=== PATIENT | female | born 1935 | race Caucasian/White ===

== ENCOUNTER 2017-09-02 13:44 | Emergency (ER) | payer MEDICARE, BC ==
--- NOTE | 2017-09-02 14:56 | EDM.PDOC ---
ED HPI GENERAL MEDICAL PROBLEM - General Chief Complaint: Head Injury Stated Complaint: Fall Time Seen by Provider: 09/02/17 14:46 Source of Information: Reports: Patient, EMS, EMS Notes Reviewed History Limitations: Reports: No Limitations - History of Present Illness INITIAL COMMENTS - FREE TEXT/NARRATIVE: Patient is an 82-year-old female who presents to the emergency department via EMS this afternoon for complaint of fall at nursing facility. Patient states that she tripped on her walker landing on both knees and falling forward and hitting her head. Fall was witnessed. Patient denies headache, dizziness, neck pain, vision changes, coagulation therapy, chest pain, shortness of breath , syncope or near syncope, back pain, or any other injury. 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 Constitutional: Reports: No Symptoms HEENT: Reports: No Symptoms Respiratory: Reports: No Symptoms Cardiovascular: Reports: No Symptoms Endocrine: Reports: No Symptoms GI/Abdominal: Reports: No Symptoms : Reports: No Symptoms Musculoskeletal: Reports: Leg Pain (Bilateral knees) Skin: Reports: Bruising (Left for head) Neurological: Reports: No Symptoms. Denies: Confusion, Dizziness, Headache, Trouble Speaking, Change in Speech Psychiatric: Reports: No Symptoms Hematologic/Lymphatic: Reports: No Symptoms Immunologic: Reports: No Symptoms ED EXAM, HEAD INJURY - Physical Exam Exam: See Below Exam Limited By: No Limitations General Appearance: Alert, WD/WN, No Apparent Distress Head: Scalp Swelling, Scalp Ecchymosis, Scalp Hematoma, Scalp Tenderness. No: Scalp Lacerations, Scalp Abrasions, Active Bleeding, Bee's Sign, Sinus Tenderness, Facial Tenderness, Raccoon Eyes Nexus Criteria: No: Posterior, Midline Cervical Tenderness, Evidence of Intoxication, Altered Level of Consciousness, Focal Neurological Deficit, Painful Distraction Injuries Eyes: Bilateral Eye: Normal Inspection Ears: Normal External Exam, Normal Canal, Normal TMs Nose: Normal Inspection, Normal Mucousa, No Blood Throat/Mouth: Normal Inspection, Normal Oropharynx, No Airway Compromise Neck: Non-Tender, Full Range of Motion, Normal Alignment, Normal Inspection Respiratory: No Respiratory Distress, Lungs Clear, Normal Breath Sounds, No Accessory Muscle Use, Chest Non-Tender Cardiovascular: Regular Rate, Rhythm, No Murmur GI/Abdominal Exam: Normal Bowel Sounds, Soft, Non-Tender Back Exam: Normal Inspection, Full Range of Motion. 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, No Motor/Sensory Deficits, Alert, Normal Mood/Affect, Oriented x 3 Skin: Normal Color, Warm/Dry, Ecchymosis (Left lower forehead) - Sherrell Coma Score Spring Total: 15 Course - Vital Signs Last Recorded V/S: Last Vital Signs Temp 98.3 F 09/02/17 13:56 Pulse 72 09/02/17 13:56 Resp 16 09/02/17 13:56 BP 145/70 H 09/02/17 13:56 Pulse Ox 92 L 09/02/17 13:56 - Orders/Labs/Meds Orders: Active Orders 24 hr Category Date Time Status Cervical Spine wo Cont [CT] Stat Exams 09/02/17 13:55 Ordered Head wo Cont [CT] Stat Exams 09/02/17 13:55 Ordered Knee 3V Bi [CR] Stat Exams 09/02/17 13:55 Ordered - Radiology Interpretation Free Text/Narrative:: CT head and cervical spine, both negative for acute process Bilateral knee 3 view x-rays were negative for acute process CT Results Date: 09/02/17 - Re-Assessments/Exams Free Text/Narrative Re-Assessment/Exam: 09/02/17 15:11 Patient afebrile, nontoxic appearing, vital signs stable, denies any pain. Patient acting appropriately and has family with her. Patient will follow-up with PCP. Departure - Departure Time of Disposition: 15:12 Disposition: Home, Self-Care 01 Condition: Good Clinical Impression: Hematoma Contusion of scalp Qualifiers: Encounter type: initial encounter Qualified Code(s): S00.03XA - Contusion of scalp, initial encounter Knee contusion Qualifiers: Encounter type: initial encounter Laterality: unspecified laterality Qualified Code(s): S80.00XA - Contusion of unspecified knee, initial encounter - Discharge Information Instructions: Facial or Scalp Contusion, [id number], Hematoma, [id number], Head Injury, Adult, [id number], Contusion, [id number] Referrals: Rhonda Centeno PA-C [Primary Care Provider] - Additional Instructions: Follow-up with PCP in one to 2 days. Return to emergency department sooner if symptoms continue or worsen. - My Orders Last 24 Hours: My Active Orders 09/02/17 13:55 Cervical Spine wo Cont [CT] Stat Head wo Cont [CT] Stat Knee 3V Bi [CR] Stat - Assessment/Plan Last 24 Hours: My Active Orders 09/02/17 13:55 Cervical Spine wo Cont [CT] Stat Head wo Cont [CT] Stat Knee 3V Bi [CR] Stat Assessment:: Fall, elbow contusion, knee contusion Plan: Follow-up with PCP
== END 2017-09-02 15:20 | disposition home or self-care (01) ==
LOC: KA.ED 13:44
DX: S00.03XA Contusion of scalp, initial encounter (principal); S80.01XA Contusion of right knee, initial encounter; S80.02XA Contusion of left knee, initial encounter; Z79.899 Other long term (current) drug therapy; W01.10XA Fall on same level from slipping, tripping and stumbling with subsequent striking against unspecified object, initial encounter
CPT/HCPCS: 70450; 72125; 73562-50; 99284; 99285

== ENCOUNTER 2020-04-25 15:10 | Inpatient (IN) | payer MEDICARE, BC ==
--- NOTE | 2020-04-25 15:32 | EDM.PDOC ---
ED HPI GENERAL MEDICAL PROBLEM - General Chief Complaint: Respiratory Problem Stated Complaint: SOB Time Seen by Provider: 04/25/20 15:10 Source of Information: Reports: Patient, EMS History Limitations: Reports: No Limitations - History of Present Illness INITIAL COMMENTS - FREE TEXT/NARRATIVE: Nicole, 85-year-old female, while at home today developed sudden onset of shortness of breath with mild chest pressure discomfort. She had no other symptoms prior to that. She states no discomfort at this time as long as she is seated not straining, nor moving. She denies fever chills or other contributing factors, but when updating her daughter Liyah on her status at 1630 hrs. was informed that she had been gradually getting weaker over the past week. Last week she bumped her knee causing some irritation and discomfort but denies any significant sequela from that. Onset: Today, Sudden Onset Date: 04/25/20 Onset Time: 14:30 Duration: Minutes: Location: Reports: Chest - Related Data Allergies Allergy/AdvReac Type Severity Reaction Status Date / Time No Known Allergies Allergy Verified 04/25/20 15:29 Home Meds: Home Meds Losartan/Hydrochlorothiazide [Losartan-HCTZ 100-25 MG] 1 tab PO DAILY 09/02/17 [History] Metoprolol Succinate 50 mg PO DAILY 09/02/17 [History] Simvastatin 40 mg PO DAILY 09/02/17 [History] Calcium Carbonate/Vitamin D3 [Caltrate 600 Plus D3 Tablet] 1 tab PO DAILY 04/25/20 [History] Niacin 500 mg PO DAILY 04/25/20 [History] Vit C/E/Zn/Coppr/Lutein/Zeaxan [Preservision Areds 2 Softgel] 1 each PO DAILY 04/25/20 [History] hydroCHLOROthiazide [Hydrochlorothiazide] 25 mg PO DAILY 04/25/20 [History] Past Medical History HEENT History: Reports: Impaired Vision, Other (See Below) (Left eye deviation) Cardiovascular History: Reports: High Cholesterol, Hypertension Neurological History: Reports: Other (See Below) Other Neuro History: RESTLESS LEG SYNDROME Endocrine/Metabolic History: Reports: Diabetes, Type II Oncologic (Cancer) History: Reports: Breast - Past Imaging History Past Imaging History: Reports: CAT Scan, Xray Social & Family History - Family History Family Medical History: Noncontributory - Tobacco Use Tobacco Use Status *Q: Never Tobacco User - Caffeine Use Caffeine Use: Reports: Coffee - Alcohol Use Alcohol Use History: No - Recreational Drug Use Recreational Drug Use: No Drug Use in Last 12 Months: No - Living Situation & Occupation Living situation: Reports: , Alone ED ROS GENERAL - Review of Systems Review Of Systems: See Below Constitutional: Reports: No Symptoms HEENT: Reports: No Symptoms Respiratory: Reports: Shortness of Breath Cardiovascular: Reports: Chest Pain Endocrine: Reports: No Symptoms GI/Abdominal: Reports: No Symptoms : Reports: No Symptoms Musculoskeletal: Reports: Joint Pain (Knee pain knee pain), Muscle Pain (Knee pain) Skin: Reports: Bruising (Knee) Neurological: Reports: No Symptoms Psychiatric: Reports: No Symptoms Hematologic/Lymphatic: Reports: No Symptoms Immunologic: Reports: No Symptoms ED EXAM, GENERAL - Physical Exam Exam: See Below Free Text/Narrative:: Alert, oriented, and in no acute distress. 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 There is a small scar to the eyebrow. [place] moist mucous membranes Neck is soft supple with no carotid bruit no JVD appreciated. Thorax is clear, mildly diminished, with no wheezes nor crackles. Cardiac is S1-S2 with occasional ectopic beat. There is a grade 1 systolic murmur nonradiating. Abdomen is soft bowel sounds are present no flank pain is noted. Radial pulses correlate with apical heart rate. There is a horizontal scar over the right patella she states is an injury from childhood. There is faint ecchymosis to the left knee region none of which appears significant, nor painful to touch/palpation. Negative Homans' sign bilateral with no change in perception sensation to plantar flexion dorsiflexion. When questioned about her fall, she adamantly denies it being a fall, she just slipped when seated against a hamper causing her to bump her knee. This minor injury did not cause any disability or bedridden. That would place her at risk for clot issues. #1 Interpretation EKG Date: 04/25/20 Time: 15:46 Rhythm: NSR Rate (Beats/Min): 70 (PAC's) [place]: Normal P-Wave: Present QRS: Normal ST-T: Normal QT: Normal Comparison: NA - No Prior EKG Course - Vital Signs Last Recorded V/S: Last Vital Signs Temp 36.1 C 04/25/20 15:30 Pulse 68 04/25/20 18:10 Resp 21 H 04/25/20 18:10 BP 186/110 H 04/25/20 18:10 Pulse Ox 98 04/25/20 18:10 - Orders/Labs/Meds Orders: Active Orders 24 hr Category Date Time Status EKG Documentation Completion [RC] ASDIRECTED Care 04/25/20 15:30 Active Heparin Sodium/D5W 250 ml Med 04/25/20 17:15 Ordered IV TITRATE Sodium Chloride 0.9% [Normal Saline] 100 ml Med 04/25/20 16:45 Active IV ASDIRECTED Sodium Chloride 0.9% [Normal Saline] 250 ml Med 04/25/20 17:30 Active IV ASDIRECTED EKG 12 Lead [EK] Urgent Ther 04/25/20 15:30 Ordered Medication Orders Sodium Chloride (Normal Saline) 100 mls @ 200 mls/hr IV ASDIRECTED SHU Heparin Sodium/Dextrose () 250 mls @ 13.42 mls/hr IV TITRATE SHU; Protocol Last Admin: 04/25/20 17:43 Dose: 1,342 units/hr, 13.42 mls/hr Documented by: JAIMIE Cosigned by: DARYL Sodium Chloride (Normal Saline) 250 mls @ 100 mls/hr IV ASDIRECTED SHU Labs: Laboratory Tests 04/25/20 04/25/20 04/25/20 Range/Units 15:00 15:00 15:00 WBC 11.04 H (5.00-10.00) 10^3/uL RBC 5.61 H (3.80-5.50) 10^6/uL Hgb 16.2 H (12.0-16.0) g/dL Hct 48.0 H (37.0-47.0) % MCV 85.6 (82.0-92.0) fL MCH 28.9 (27.0-31.0) pg MCHC 33.8 (32.0-36.0) g/dL RDW 12.9 (11.5-14.5) % Plt Count 251 (150-400) 10^3/uL MPV 10.9 H (7.4-10.4) fL Immature Gran % (Auto) 0.2 (0.0-5.0) % Neut % (Auto) 66.0 (50.0-70.0) % Lymph % (Auto) 25.1 (20.0-40.0) % [place] % (Auto) 7.5 (2.0-8.0) % Eos % (Auto) 0.8 L (1.0-3.0) % Baso % (Auto) 0.4 (0.0-1.0) % Neut # (Auto) 7.29 H (2.50-7.00) 10^3/uL Lymph # (Auto) 2.77 (1.00-4.00) 10^3/uL [place] # (Auto) 0.83 H (0.10-0.80) 10^3/uL Eos # (Auto) 0.09 L (0.10-0.30) 10^3/uL Baso # (Auto) 0.04 (0.00-0.10) 10^3/uL Immature Gran # (Auto) 0.02 (0.00-0.50) 10^3/uL APTT (22.8-31.4) SEC D-Dimer, Quantitative 1220 H (<400) ng/mL Sodium 138 (136-145) mmol/L Potassium 3.8 (3.3-5.3) mmol/L Chloride 98 (98-115) mmol/L Carbon Dioxide 26.1 (21.0-32.0) mmol/L Anion Gap 17.7 H (5-15) mmol/L BUN 14 (6-25) mg/dL Creatinine 0.79 (0.51-1.17) mg/dL Est Cr Clr Drug Dosing TNP Estimated GFR (MDRD) > 60 mL/min Glucose 232 H (75 - 99) mg/dL Calcium 9.7 (8.7-10.3) mg/dL Total Bilirubin 0.6 (0.2-1.0) mg/dL AST 22 (15-37) U/L ALT 25 (12-78) U/L Alkaline Phosphatase 127 H (46-116) IU/L Creatine Kinase 73 (26-276) U/L CK-MB (CK-2) 1.90 (0.00-4.30) ng/mL Troponin I 0.21 H* (0.00-0.070) ng/mL B-Natriuretic Peptide (0-100) pg/mL Total Protein 7.4 (6.4-8.2) g/dL Albumin 3.83 (3.00-4.80) g/dL SARS CoV-2 RNA Rapid SUYAPA (NEGATIVE) 04/25/20 04/25/20 04/25/20 Range/Units 15:00 15:00 17:50 WBC (5.00-10.00) 10^3/uL RBC (3.80-5.50) 10^6/uL Hgb (12.0-16.0) g/dL Hct (37.0-47.0) % MCV (82.0-92.0) fL MCH (27.0-31.0) pg MCHC (32.0-36.0) g/dL RDW (11.5-14.5) % Plt Count (150-400) 10^3/uL MPV (7.4-10.4) fL Immature Gran % (Auto) (0.0-5.0) % Neut % (Auto) (50.0-70.0) % Lymph % (Auto) (20.0-40.0) % [place] % (Auto) (2.0-8.0) % Eos % (Auto) (1.0-3.0) % Baso % (Auto) (0.0-1.0) % Neut # (Auto) (2.50-7.00) 10^3/uL Lymph # (Auto) (1.00-4.00) 10^3/uL [place] # (Auto) (0.10-0.80) 10^3/uL Eos # (Auto) (0.10-0.30) 10^3/uL Baso # (Auto) (0.00-0.10) 10^3/uL Immature Gran # (Auto) (0.00-0.50) 10^3/uL APTT 22.3 L (22.8-31.4) SEC D-Dimer, Quantitative (<400) ng/mL Sodium (136-145) mmol/L Potassium (3.3-5.3) mmol/L Chloride (98-115) mmol/L Carbon Dioxide (21.0-32.0) mmol/L Anion Gap (5-15) mmol/L BUN (6-25) mg/dL Creatinine (0.51-1.17) mg/dL Est Cr Clr Drug Dosing Estimated GFR (MDRD) mL/min Glucose (75 - 99) mg/dL Calcium (8.7-10.3) mg/dL Total Bilirubin (0.2-1.0) mg/dL AST (15-37) U/L ALT (12-78) U/L Alkaline Phosphatase (46-116) IU/L Creatine Kinase (26-276) U/L CK-MB (CK-2) (0.00-4.30) ng/mL Troponin I (0.00-0.070) ng/mL B-Natriuretic Peptide 310 H (0-100) pg/mL Total Protein (6.4-8.2) g/dL Albumin (3.00-4.80) g/dL SARS CoV-2 RNA Rapid SUYAPA Negative (NEGATIVE) Meds: Medications Generic Name Dose Route Start Last Admin Trade Name Freq PRN Reason Stop Dose Admin Sodium Chloride 100 mls @ 200 mls/hr 04/25/20 16:45 Normal Saline IV ASDIRECTED SHU Heparin Sodium/Dextrose 250 mls @ 13.42 mls/hr 04/25/20 17:15 04/25/20 17:43 IV 1,342 units/hr TITRATE SHU 13.42 mls/hr Administration Protocol 1,342 UNITS/HR Sodium Chloride 250 mls @ 100 mls/hr 04/25/20 17:30 Normal Saline IV ASDIRECTED SHU Discontinued Medications Generic Name Dose Route Start Last Admin Trade Name Freq PRN Reason Stop Dose Admin Heparin Sodium (Porcine) 4,000 units 04/25/20 17:01 04/25/20 17:11 Heparin Sodium IVPUSH 04/25/20 17:02 4,000 units ONETIME ONE Administration Hydralazine HCl 5 mg 04/25/20 18:20 04/25/20 18:25 Apresoline IVPUSH 04/25/20 18:21 5 mg ONETIME ONE Administration Iopamidol 100 ml 04/25/20 16:34 Isovue-370 (76%) IV 04/25/20 16:35 ONETIME ONE - Radiology Interpretation Free Text/Narrative:: COPD with cardiomegaly and no evidence of acute heart failure. - Re-Assessments/Exams Free Text/Narrative Re-Assessment/Exam: 04/25/20 16:33 Called daughter Liyah with update on status of elevated troponin and positive D- dimer with plan for CT chest. Free Text/Narrative Re-Assessment/Exam: 04/25/20 18:07 Daughter, Liyah, was updated on the status and provide the information of her mother's wishes for DNR/DNI. Discussed aspects of continuing heparin drip remaining here versus transfer to higher level of care to which she agrees and feels her mother would be much better served remaining here at the [facility]. Dr. Tia Coon is informed of diagnosis and CODE STATUS, agreeing to the admission here. Free Text/Narrative Re-Assessment/Exam: 04/25/20 18:37 Hydralazine 5 mg given IV secondary of continued hypertension. 04/25/20 18:41 Patient admitted to the floor with no significant change at the time of admission. Departure - Departure Time of Disposition: 18:36 Disposition: Admitted As Inpatient 65 Condition: Fair Clinical Impression: Elevated d-dimer, Pulmonary embolism, Elevated troponin I level, Shortness of breath, Atypical chest pain, Diabetes 1.5, managed as type 2, HTN (hypertension) - Discharge Information *PRESCRIPTION DRUG MONITORING PROGRAM REVIEWED*: Not Applicable *COPY OF PRESCRIPTION DRUG MONITORING REPORT IN PATIENT ALEXUS: Not Applicable Referrals: Rhonda Centeno PA-C [Primary Care Provider] - Jessi David MD [Physician] - Forms: ED Department Discharge Additional Instructions: Will be admitted to the floor, acute, Dr. Tia Coon [facility]. Sepsis Event Note (ED) - Evaluation Sepsis Screening Result: No Definite Risk - Focused Exam Vital Signs: Vital Signs Temp Pulse Resp BP Pulse Ox 04/25/20 18:10 68 21 H 186/110 H 98 04/25/20 17:46 71 23 H 155/94 H 96 04/25/20 17:31 72 23 H 185/118 H 97 04/25/20 17:16 71 26 H 167/110 H 97 04/25/20 17:01 95 18 185/118 H 97 04/25/20 16:27 63 23 H 165/102 H 98 04/25/20 15:48 63 180/108 H 97 04/25/20 15:45 71 97 04/25/20 15:41 84 24 H 161/86 H 96 04/25/20 15:30 36.1 C 68 17 161/86 H 96 04/25/20 15:15 36.1 C 63 21 H 192/117 H 96 ED Communication - ED Communication Date/Time Date: 04/25/20 Time Called: 18:06 - Discussed Case With (2) Discussed Case With (2): Admitting Provider Person/s Notified (3): Dr. Tia Merino - Conversation Summary Admitting Provider Agreed to Patient's Admission: Yes Radiology Reading Discussed with Radiologist: Yes Patient Aware of Amendments fo Care Plan: Yes Patient's POA/Guardian Aware of Amendments to Care Plan: Yes Summary Comment: Discussion with daughter Liyah [phone] who agrees with the nontransfer DNR/DNI status. POLST form completed. - Problem List & Annotations (1) Shortness of breath SNOMED Code(s): 829249312 Code(s): R06.02 - SHORTNESS OF BREATH Status: Acute Priority: High Current Visit: Yes (2) Atypical chest pain SNOMED Code(s): 206790251 Code(s): R07.89 - OTHER CHEST PAIN Status: Acute Priority: High Current Visit: Yes (3) Elevated d-dimer SNOMED Code(s): 800103736 Code(s): R79.89 - OTHER SPECIFIED ABNORMAL FINDINGS OF BLOOD CHEMISTRY Status: Acute Priority: High Current Visit: Yes (4) Elevated troponin I level SNOMED Code(s): 176432686 Code(s): R77.8 - OTHER SPECIFIED ABNORMALITIES OF PLASMA PROTEINS Status: Acute Priority: High Current Visit: Yes (5) Cardiomegaly SNOMED Code(s): 4143414 Code(s): I51.7 - CARDIOMEGALY Status: Acute Priority: Medium Current Visit: Yes (6) Pulmonary embolism SNOMED Code(s): 64327330 Code(s): I26.99 - OTHER PULMONARY EMBOLISM WITHOUT ACUTE COR PULMONALE Status: Acute Current Visit: Yes Qualifiers: Pulmonary embolism type: unspecified Chronicity: acute Acute cor pulmonale presence: unspecified Qualified Code(s): I26.99 - Other pulmonary embolism without acute cor pulmonale (7) HTN (hypertension) SNOMED Code(s): 48783425 Code(s): I10 - ESSENTIAL (PRIMARY) HYPERTENSION Status: Chronic Priority: Medium Current Visit: Yes Qualifiers: Hypertension type: essential hypertension Qualified Code(s): I10 - Essential (primary) hypertension (8) Diabetes 1.5, managed as type 2 SNOMED Code(s): 625252365 Code(s): E13.9 - OTHER SPECIFIED DIABETES MELLITUS WITHOUT COMPLICATIONS Status: Chronic Priority: Medium Current Visit: Yes - Problem List Review Problem List Initiated/Reviewed/Updated: Yes - My Orders Last 24 Hours: My Active Orders 04/25/20 15:30 EKG Documentation Completion [RC] ASDIRECTED EKG 12 Lead [EK] Urgent 04/25/20 16:45 Sodium Chloride 0.9% [Normal Saline] 100 ml IV ASDIRECTED 04/25/20 17:15 Heparin Sodium/D5W 250 ml IV TITRATE 04/25/20 17:30 Sodium Chloride 0.9% [Normal Saline] 250 ml IV ASDIRECTED - Assessment/Plan Last 24 Hours: My Active Orders 04/25/20 15:30 EKG Documentation Completion [RC] ASDIRECTED EKG 12 Lead [EK] Urgent 04/25/20 16:45 Sodium Chloride 0.9% [Normal Saline] 100 ml IV ASDIRECTED 04/25/20 17:15 Heparin Sodium/D5W 250 ml IV TITRATE 04/25/20 17:30 Sodium Chloride 0.9% [Normal Saline] 250 ml IV ASDIRECTED Plan: Will be admitted to the floor, acute, Dr. Weber yaritza [facility].
--- NOTE | 2020-04-25 16:18 | CR ---
[id number] RAD/RAD Chest PA And Lateral EXAM: FRONTAL AND LATERAL CHEST INDICATION: SHORT OF BREATH. COMPARISON: None. DISCUSSION: Hyperinflation suggests underlying COPD. Linear scarring or atelectasis in the lung bases with no definite infiltrates. Mild cardiomegaly without evidence of edema. IMPRESSION: 1. COPD. 2. Mild cardiomegaly without evidence of congestive heart failure. Peter Brothers MD 04/25/20 [id number] Thank you for allowing us to participate in the care of your patient.
[2020-04-25 16:19] LABS: ANION GAP 17.7 mmol/L (5-15); CHLORIDE,CL 98 mmol/L (98-115); SODIUM,NA 138 mmol/L (136-145)
[2020-04-25] MEDS ORDERED: Iopamidol 755 Mg/ML 100 ML Bottle IV ONE (16:34)
[2020-04-25] MEDS ORDERED: Sodium Chloride 0.9% 100 ML IV SCH (16:45)
[2020-04-25] MEDS ORDERED: Heparin Sodium 5,000 Units/ML Vial IVPUSH ONE (17:01)
[2020-04-25] MEDS ORDERED: Sodium Chloride 0.9% 250 ML IV SCH (17:30)
--- NOTE | 2020-04-25 17:33 | CT ---
[id number] CT/CTA Chest EXAM: CT ANGIOGRAM CHEST. INDICATION: ELEVATED D DIMER, TROPONIN WITH ACUTE CHEST PAIN. COMPARISON: Chest radiograph same date. DISCUSSION: Moderate volume bilateral pulmonary emboli beginning in the main pulmonary artery on the right and extending into lobar, subsegmental and segmental branches of the right lower lobe and segmental and subsegmental branches of the right middle and lower lobes. On the left emboli beginning in the lobar branch of the left lower lobe extending into segmental and subsegmental branches and into a segmental branch of the left upper lobe with extension into subsegmental branches. Evidence of associated heart strain including dilation of the right ventricle and interventricular septal shift. The thyroid is enlarged with possible underlying nodules/masses, consider dedicated thyroid ultrasound. Arterial calcifications within the aorta and its major branches including the coronary arteries. There are scattered small renal masses most which likely represent cysts, some which are indeterminate by density. In the superior aspect of the right lobe of liver there is an 11 mm cyst. Other scattered hepatic hypodensities are too small to further characterize. Mild linear scarring or atelectasis in the lung bases. There are few small scattered noncalcified pulmonary nodules measuring up to 4 mm. For instance, 4 mm right lower lobe image 91 series 3. Results called at time dictation. IMPRESSION: 1. Moderate volume bilateral pulmonary emboli with evidence of right heart strain. Peter Brothers MD 04/25/20 [id number] Thank you for allowing us to participate in the care of your patient.
[2020-04-25] MEDS: Heparin Sodium/D5W 250 ML IV SCH (17:43)
[2020-04-25] MEDS ORDERED: hydrALAZINE 20 MG/ML SDV IVPUSH ONE (18:20)
[2020-04-25] MEDS ORDERED: Glucagon,Human Recombinant 1 MG Vial IM PRN (21:06)
[2020-04-25] MEDS ORDERED: 50% Dextrose in Water 50 ML Syringe IV PRN (21:06)
[2020-04-25] MEDS: Insulin Aspart 100 Units/ML 3 ML Pen SUBCUT SCH (21:49)
[2020-04-26] MEDS ORDERED: Heparin Sodium 5,000 Units/ML Vial ONE (00:45)
[2020-04-26] MEDS ORDERED: Magnesium Hydroxide 400 MG/5 ML Susp 30 ML Cup PO PRN (05:52)
[2020-04-26] MEDS: Losartan 50 MG Tab PO SCH (08:15)
[2020-04-26] MEDS: Hydrochlorothiazide 25 MG Tab PO SCH (08:16)
[2020-04-26] MEDS: Insulin Aspart 100 Units/ML 3 ML Pen SUBCUT SCH ×4 (08:16→21:05)
[2020-04-26 08:42] LABS: ANION GAP 14.3 mmol/L (5-15); CHLORIDE,CL 100 mmol/L (98-115); SODIUM,NA 140 mmol/L (136-145)
[2020-04-26] MEDS: Metoprolol Succinate 25 MG Tab.ER PO SCH (10:35)
[2020-04-26] MEDS: Heparin Sodium/D5W 250 ML IV SCH (10:35)
--- NOTE | 2020-04-26 11:13 | PCM.HP.2 ---
H&P History of Present Illness - General Date of Service: 04/26/20 Admit Problem/Dx: Admission Diagnosis/Problem Admission Diagnosis/Problem Pulmonary embolism Source of Information: Patient, RN - Related Data Allergies/Adverse Reactions: Allergies Allergy/AdvReac Type Severity Reaction Status Date / Time No Known Allergies Allergy Verified 04/25/20 20:13 Home Medications: Home Meds Losartan/Hydrochlorothiazide [Losartan-HCTZ 100-25 MG] 1 tab PO DAILY 09/02/17 [History] Metoprolol Succinate 50 mg PO DAILY 09/02/17 [History] Simvastatin 40 mg PO DAILY 09/02/17 [History] Calcium Carbonate/Vitamin D3 [Caltrate 600 Plus D3 Tablet] 1 tab PO DAILY 04/25/20 [History] Niacin 500 mg PO DAILY 04/25/20 [History] Vit C/E/Zn/Coppr/Lutein/Zeaxan [Preservision Areds 2 Softgel] 1 each PO DAILY 04/25/20 [History] hydroCHLOROthiazide [Hydrochlorothiazide] 25 mg PO DAILY 04/25/20 [History] Past Medical History HEENT History: Reports: Impaired Vision Cardiovascular History: Reports: High Cholesterol, Hypertension Respiratory History: Reports: PE, SOB Gastrointestinal History: Reports: Chronic Constipation Genitourinary History: Reports: Urinary Incontinence [employer] History: Reports: , Other (See Below) Other OB/BYN History: hysterectomy Musculoskeletal History: Reports: Arthritis, Other (See Below) Other Musculoskeletal History: Occasional right upper arm pain. Neurological History: Reports: Other (See Below) Other Neuro History: RESTLESS LEG SYNDROME Endocrine/Metabolic History: Reports: Diabetes, Type II Oncologic (Cancer) History: Reports: Breast - Infectious Disease History Infectious Disease History: Reports: Chicken Pox, Measles - Past Surgical History HEENT Surgical History: Reports: Cataract Surgery, Tonsillectomy Cardiovascular Surgical History: Reports: None Respiratory Surgical History: Reports: None GI Surgical History: Reports: None Female Surgical History: Reports: Hysterectomy, Mastectomy, Other (See Below) Other Female Surgeries/Procedures: Right breast mastectomy Endocrine Surgical History: Reports: None Neurological Surgical History: Reports: None Musculoskeletal Surgical History: Reports: None Oncologic Surgical History: Reports: Mastectomy - Past Imaging History Past Imaging History: Reports: CAT Scan, Xray Social & Family History - Family History Family Medical History: Noncontributory Oncologic: Reports: Colon, Leukemia, Other (See Below) Other Oncologic Family History: Mother had leukemia. Father had colon cancer. - Tobacco Use Tobacco Use Status *Q: Never Tobacco User Second Hand Smoke Exposure: No - Caffeine Use Caffeine Use: Reports: Coffee - Recreational Drug Use Recreational Drug Use: No Drug Use in Last 12 Months: No - Living Situation & Occupation Living situation: Reports: , Alone H&P Review of Systems - Review of Systems: Review Of Systems: See Below General: Reports: Weakness HEENT: Reports: No Symptoms Pulmonary: Reports: Shortness of Breath. Denies: Wheezing, Pleuritic Chest Pain, Cough, Sputum, Hemoptysis Cardiovascular: Reports: Dyspnea on Exertion, Blood Pressure Problem. Denies: Chest Pain, Orthopnea, Syncope Gastrointestinal: Denies: Bloody Stool, Constipation, Difficulty Swallowing, Melena Genitourinary: Reports: No Symptoms Musculoskeletal: Reports: Leg Pain (left ant) Skin: Reports: Dryness Psychiatric: Denies: Confusion, Depression, Anxiety Neurological: Reports: Difficulty Walking, Weakness. Denies: Dizziness Hematologic/Lymphatic: Reports: No Symptoms Immunologic: Reports: No Symptoms Exam - Exam Exam: See Below - Vital Signs Vital Signs: Last Vital Signs Temp 97.3 F 04/26/20 10:32 Pulse 72 04/26/20 10:35 Resp 16 04/26/20 10:32 BP 143/77 H 04/26/20 10:35 Pulse Ox 92 L 04/26/20 10:32 Weight: 240 lb - Exam Quality Assessment: Supplemental Oxygen, DVT Prophylaxis (cross covered. ) HEENT: Mucosa Moist & [place] Neck: Supple, Trachea Midline Lungs: Clear to Auscultation, Normal Respiratory Effort. No: Crackles, Rales, Rhonchi, Rub, Stridor, Wheezing Cardiovascular: Regular Rate, Regular Rhythm. No: Systolic Murmur, Gallop/S3, Gallop/S4 GI/Abdominal Exam: Soft, No Distention (Female) Exam: Deferred Back Exam: No: CVA Tenderness (L), CVA Tenderness (R) Extremities: No Pedal Edema, Other (Neg [place] bilaterally, no unilateral edema or palpable cord or the erythremia however tender to anterior leg left lower extremity) Skin: Warm, Dry, Intact Neurological: Strength Equal Bilateral, Normal Speech, Normal Tone, Sensation Intact Neuro Extensive - Mental Status: Alert, Oriented x3, Normal Mood/Affect, Normal Cognition Neuro Extensive - Motor, Sensory, Reflexes: No: Ataxia, Dysarthria, Receptive Aphasia, Expressive Aphasia, Total Aphasia DTR: 2+: Patella (L), Patella (R) Psychiatric: Alert, Normal Affect, Normal Mood - Patient Data Lab Results Last 24 hrs: Laboratory Results - last 24 hr 04/25/20 04/25/20 04/25/20 Range/Units 15:00 15:00 15:00 WBC 11.04 H (5.00-10.00) 10^3/uL RBC 5.61 H (3.80-5.50) 10^6/uL Hgb 16.2 H (12.0-16.0) g/dL Hct 48.0 H (37.0-47.0) % MCV 85.6 (82.0-92.0) fL MCH 28.9 (27.0-31.0) pg MCHC 33.8 (32.0-36.0) g/dL RDW 12.9 (11.5-14.5) % Plt Count 251 (150-400) 10^3/uL MPV 10.9 H (7.4-10.4) fL Immature Gran % (Auto) 0.2 (0.0-5.0) % Neut % (Auto) 66.0 (50.0-70.0) % Lymph % (Auto) 25.1 (20.0-40.0) % [place] % (Auto) 7.5 (2.0-8.0) % Eos % (Auto) 0.8 L (1.0-3.0) % Baso % (Auto) 0.4 (0.0-1.0) % Neut # (Auto) 7.29 H (2.50-7.00) 10^3/uL Lymph # (Auto) 2.77 (1.00-4.00) 10^3/uL [place] # (Auto) 0.83 H (0.10-0.80) 10^3/uL Eos # (Auto) 0.09 L (0.10-0.30) 10^3/uL Baso # (Auto) 0.04 (0.00-0.10) 10^3/uL Immature Gran # (Auto) 0.02 (0.00-0.50) 10^3/uL APTT (22.8-31.4) SEC D-Dimer, Quantitative 1220 H (<400) ng/mL Sodium 138 (136-145) mmol/L Potassium 3.8 (3.3-5.3) mmol/L Chloride 98 (98-115) mmol/L Carbon Dioxide 26.1 (21.0-32.0) mmol/L Anion Gap 17.7 H (5-15) mmol/L BUN 14 (6-25) mg/dL Creatinine 0.79 (0.51-1.17) mg/dL Est Cr Clr Drug Dosing TNP Estimated GFR (MDRD) > 60 mL/min Glucose 232 H (75 - 99) mg/dL Calcium 9.7 (8.7-10.3) mg/dL Total Bilirubin 0.6 (0.2-1.0) mg/dL AST 22 (15-37) U/L ALT 25 (12-78) U/L Alkaline Phosphatase 127 H (46-116) IU/L Creatine Kinase 73 (26-276) U/L CK-MB (CK-2) 1.90 (0.00-4.30) ng/mL Troponin I 0.21 H* (0.00-0.070) ng/mL B-Natriuretic Peptide (0-100) pg/mL Total Protein 7.4 (6.4-8.2) g/dL Albumin 3.83 (3.00-4.80) g/dL SARS CoV-2 RNA Rapid SUYAPA (NEGATIVE) 04/25/20 04/25/20 04/25/20 Range/Units 15:00 15:00 17:50 WBC (5.00-10.00) 10^3/uL RBC (3.80-5.50) 10^6/uL Hgb (12.0-16.0) g/dL Hct (37.0-47.0) % MCV (82.0-92.0) fL MCH (27.0-31.0) pg MCHC (32.0-36.0) g/dL RDW (11.5-14.5) % Plt Count (150-400) 10^3/uL MPV (7.4-10.4) fL Immature Gran % (Auto) (0.0-5.0) % Neut % (Auto) (50.0-70.0) % Lymph % (Auto) (20.0-40.0) % [place] % (Auto) (2.0-8.0) % Eos % (Auto) (1.0-3.0) % Baso % (Auto) (0.0-1.0) % Neut # (Auto) (2.50-7.00) 10^3/uL Lymph # (Auto) (1.00-4.00) 10^3/uL [place] # (Auto) (0.10-0.80) 10^3/uL Eos # (Auto) (0.10-0.30) 10^3/uL Baso # (Auto) (0.00-0.10) 10^3/uL Immature Gran # (Auto) (0.00-0.50) 10^3/uL APTT 22.3 L (22.8-31.4) SEC D-Dimer, Quantitative (<400) ng/mL Sodium (136-145) mmol/L Potassium (3.3-5.3) mmol/L Chloride (98-115) mmol/L Carbon Dioxide (21.0-32.0) mmol/L Anion Gap (5-15) mmol/L BUN (6-25) mg/dL Creatinine (0.51-1.17) mg/dL Est Cr Clr Drug Dosing Estimated GFR (MDRD) mL/min Glucose (75 - 99) mg/dL Calcium (8.7-10.3) mg/dL Total Bilirubin (0.2-1.0) mg/dL AST (15-37) U/L ALT (12-78) U/L Alkaline Phosphatase (46-116) IU/L Creatine Kinase (26-276) U/L CK-MB (CK-2) (0.00-4.30) ng/mL Troponin I (0.00-0.070) ng/mL B-Natriuretic Peptide 310 H (0-100) pg/mL Total Protein (6.4-8.2) g/dL Albumin (3.00-4.80) g/dL SARS CoV-2 RNA Rapid SUYAPA Negative (NEGATIVE) 04/25/20 04/25/20 04/26/20 Range/Units 23:54 23:54 08:05 WBC 9.45 (5.00-10.00) 10^3/uL RBC 5.17 (3.80-5.50) 10^6/uL Hgb 14.9 (12.0-16.0) g/dL Hct 43.6 (37.0-47.0) % MCV 84.3 (82.0-92.0) fL MCH 28.8 (27.0-31.0) pg MCHC 34.2 (32.0-36.0) g/dL RDW 12.6 (11.5-14.5) % Plt Count 206 (150-400) 10^3/uL MPV 10.3 (7.4-10.4) fL Immature Gran % (Auto) 0.2 (0.0-5.0) % Neut % (Auto) 68.8 (50.0-70.0) % Lymph % (Auto) 22.3 (20.0-40.0) % [place] % (Auto) 7.2 (2.0-8.0) % Eos % (Auto) 1.2 (1.0-3.0) % Baso % (Auto) 0.3 (0.0-1.0) % Neut # (Auto) 6.50 (2.50-7.00) 10^3/uL Lymph # (Auto) 2.11 (1.00-4.00) 10^3/uL [place] # (Auto) 0.68 (0.10-0.80) 10^3/uL Eos # (Auto) 0.11 (0.10-0.30) 10^3/uL Baso # (Auto) 0.03 (0.00-0.10) 10^3/uL Immature Gran # (Auto) 0.02 (0.00-0.50) 10^3/uL APTT 47.8 H D (22.8-31.4) SEC D-Dimer, Quantitative (<400) ng/mL Sodium (136-145) mmol/L Potassium (3.3-5.3) mmol/L Chloride (98-115) mmol/L Carbon Dioxide (21.0-32.0) mmol/L Anion Gap (5-15) mmol/L BUN (6-25) mg/dL Creatinine (0.51-1.17) mg/dL Est Cr Clr Drug Dosing Estimated GFR (MDRD) mL/min Glucose (75 - 99) mg/dL Calcium (8.7-10.3) mg/dL Total Bilirubin (0.2-1.0) mg/dL AST (15-37) U/L ALT (12-78) U/L Alkaline Phosphatase (46-116) IU/L Creatine Kinase (26-276) U/L CK-MB (CK-2) (0.00-4.30) ng/mL Troponin I 0.16 H* (0.00-0.070) ng/mL B-Natriuretic Peptide (0-100) pg/mL Total Protein (6.4-8.2) g/dL Albumin (3.00-4.80) g/dL SARS CoV-2 RNA Rapid SUYAPA (NEGATIVE) 04/26/20 04/26/20 Range/Units 08:05 08:05 WBC (5.00-10.00) 10^3/uL RBC (3.80-5.50) 10^6/uL Hgb (12.0-16.0) g/dL Hct (37.0-47.0) % MCV (82.0-92.0) fL MCH (27.0-31.0) pg MCHC (32.0-36.0) g/dL RDW (11.5-14.5) % Plt Count (150-400) 10^3/uL MPV (7.4-10.4) fL Immature Gran % (Auto) (0.0-5.0) % Neut % (Auto) (50.0-70.0) % Lymph % (Auto) (20.0-40.0) % [place] % (Auto) (2.0-8.0) % Eos % (Auto) (1.0-3.0) % Baso % (Auto) (0.0-1.0) % Neut # (Auto) (2.50-7.00) 10^3/uL Lymph # (Auto) (1.00-4.00) 10^3/uL [place] # (Auto) (0.10-0.80) 10^3/uL Eos # (Auto) (0.10-0.30) 10^3/uL Baso # (Auto) (0.00-0.10) 10^3/uL Immature Gran # (Auto) (0.00-0.50) 10^3/uL APTT 74.0 H* D (22.8-31.4) SEC D-Dimer, Quantitative (<400) ng/mL Sodium 140 (136-145) mmol/L Potassium 3.6 (3.3-5.3) mmol/L Chloride 100 (98-115) mmol/L Carbon Dioxide 29.3 (21.0-32.0) mmol/L Anion Gap 14.3 (5-15) mmol/L BUN 11 (6-25) mg/dL Creatinine 0.63 (0.51-1.17) mg/dL Est Cr Clr Drug Dosing 69.31 Estimated GFR (MDRD) > 60 mL/min Glucose 183 H (75 - 99) mg/dL Calcium 9.2 (8.7-10.3) mg/dL Total Bilirubin 0.7 (0.2-1.0) mg/dL AST 18 (15-37) U/L ALT 23 (12-78) U/L Alkaline Phosphatase 110 (46-116) IU/L Creatine Kinase (26-276) U/L CK-MB (CK-2) (0.00-4.30) ng/mL Troponin I 0.10 H* (0.00-0.070) ng/mL B-Natriuretic Peptide (0-100) pg/mL Total Protein 6.8 (6.4-8.2) g/dL Albumin 3.63 (3.00-4.80) g/dL SARS CoV-2 RNA Rapid SUYAPA (NEGATIVE) Result Diagrams: 04/26/20 08:05 04/26/20 08:05 Sepsis Event Note - Evaluation Sepsis Screening Result: No Definite Risk - Focused Exam Vital Signs: Vital Signs Temp Pulse Pulse Pulse Resp BP BP 04/26/20 10:35 72 143/77 H 04/26/20 10:32 97.3 F 72 16 143/77 H 04/26/20 09:21 63 145/62 H 04/26/20 08:15 169/107 H 04/26/20 06:00 97.5 F 61 20 172/87 H 04/26/20 02:40 97.8 F 63 20 132/87 Pulse Ox 04/26/20 10:35 11/03/20 10:32 92 L 04/26/20 09:21 04/26/20 08:15 04/26/20 06:00 94 L 04/26/20 02:40 94 L Problem List Initiated/Reviewed/Updated: Yes Orders Last 24hrs: Active Orders 24 hr Category Date Time Status Patient Status [ADT] Routine ADT 04/25/20 18:38 Active Antiembolic Devices [RC] PER UNIT ROUTINE Care 04/26/20 10:26 Active Blood Glucose Check, Bedside [RC] WITHMEALSANDBED Care 04/25/20 21:06 Active Cardiac Monitoring [RC] 03,07,11,15,19,23 Care 04/25/20 18:38 Active Dietary Supplements [RC] ACBED Care 04/26/20 09:09 Active Notify Provider Vital Signs [RC] ASDIRECTED Care 04/25/20 21:13 Active Oxygen Therapy [RC] PRN Care 04/25/20 21:11 Active Up With Assistance [RC] ASDIRECTED Care 04/25/20 21:11 Active VTE/DVT Education [RC] PER UNIT ROUTINE Care 04/25/20 21:11 Active Vital Signs [RC] 03,07,11,15,19,23 Care 04/25/20 21:11 Active Consult to Case Management/Cardiac Sonographer [CONS] Cons 04/25/20 21:11 Active Routine PT Evaluation and Treatment [CONS] Routine Cons 04/26/20 10:26 Active Citizen Of [place] Diabetic [employer] Diet [DIET] Diet 04/26/20 Breakfast Active Venous Doppler Lwr Ext Bi [US] Routine Exams 04/27/20 10:00 Ordered PTT,PARTIAL THROMBOPLSTIN TIME [COAG] Timed Lab 04/26/20 14:45 Ordered Dextrose 50% in Water Med 04/25/20 21:06 Active 50 ml IV ASDIRECTED PRN Glucagon,Human Recombinant [GlucaGen] Med 04/25/20 21:06 Active 1 mg IM ASDIRECTED PRN Heparin Sodium/D5W 250 ml Med 04/25/20 17:15 Active IV TITRATE Insulin Aspart [NovoLOG] Med 04/25/20 22:00 Active See Protocol SUBCUT WITHMEALSANDBED Losartan [Cozaar] Med 04/26/20 09:00 Active 100 mg PO DAILY Magnesium Hydroxide [Milk of Magnesia] Med 04/26/20 05:52 Active 30 ml PO DAILY PRN Metoprolol Succinate [Toprol XL] Med 04/26/20 09:00 Active 75 mg PO DAILY Simvastatin [Zocor] Med 04/26/20 21:00 Active 40 mg PO BEDTIME Sodium Chloride 0.9% [Normal Saline] 100 ml Med 04/25/20 16:45 Active IV ASDIRECTED Sodium Chloride 0.9% [Normal Saline] 250 ml Med 04/25/20 17:30 Active IV ASDIRECTED hydroCHLOROthiazide Med 04/26/20 09:00 Active 25 mg PO DAILY IMTIAZ Hose [Antiembolic Hose] [OM.PC] Routine Oth 04/26/20 10:26 Ordered Code Status [Resuscitation Status] Stat Resus Stat 04/25/20 18:40 Ordered EKG 12 Lead [EK] Urgent Ther 04/25/20 15:30 Ordered Medication Orders Dextrose/Water (Dextrose 50% In Water) 50 ml IV ASDIRECTED PRN PRN Reason: Hypoglycemia Glucagon (Glucagen) 1 mg IM ASDIRECTED PRN PRN Reason: Hypoglycemia Hydrochlorothiazide (Hydrochlorothiazide) 25 mg PO DAILY SHU Last Admin: 04/26/20 08:16 Dose: 25 mg Documented by: GABRIEL Sodium Chloride (Normal Saline) 100 mls @ 200 mls/hr IV ASDIRECTED SHU Heparin Sodium/Dextrose () 250 mls @ 13.42 mls/hr IV TITRATE SHU; Protocol Last Admin: 04/26/20 10:35 Dose: 1,440 units/hr, 14.4 mls/hr Documented by: GABRIEL Cosigned by: ARIC Titration: 04/26/20 10:35 Dose: 1,440 units/hr, 14.4 mls/hr Documented by: GABRIEL Cosigned by: ARIC Titration: 04/26/20 08:55 Dose: 1,440 units/hr, 14.4 mls/hr Documented by: GABRIEL Cosigned by: ARIC Titration: 04/26/20 01:14 Dose: 1,550 units/hr, 15.5 mls/hr Documented by: SUDHA Cosigned by: GEOFFREY Admin: 04/25/20 17:43 Dose: 1,342 units/hr, 13.42 mls/hr Documented by: MALEKAT Cosigned by: BOSHKRI Sodium Chloride (Normal Saline) 250 mls @ 100 mls/hr IV ASDIRECTED [facility] Insulin Aspart (Novolog) 0 unit SUBCUT WITHMEALSANDBED SHU; Protocol Last Admin: 04/26/20 08:16 Dose: 1 units Documented by: Admin: 04/25/20 21:49 Dose: 2 units Documented by: TAD Losartan Potassium (Cozaar) 100 mg PO DAILY [facility] Last Admin: 04/26/20 08:15 Dose: 100 mg Documented by: GABRIEL Magnesium Hydroxide (Milk Of Magnesia) 30 ml PO DAILY PRN PRN Reason: Constipation Last Admin: 04/26/20 06:34 Dose: 30 ml Documented by: SUDHA Metoprolol Succinate (Toprol Xl) 75 mg PO DAILY [facility] Last Admin: 04/26/20 10:35 Dose: 75 mg Documented by: GABRIEL Simvastatin (Zocor) 40 mg PO BEDTIME [facility] Assessment/Plan Comment:: History of present illness Farber very pleasant alert and oriented female that was admitted into inpatient status via the ED yesterday April 25 due to a diagnosis of pulmonary embolism. Patient was in her normal course of relative good health (other than lower extremity weakness) she suddenly started having sortness of breath with some mild anterior chest wall discomfort prompting ED presentation. Patient does denote that she was not able to get up off of her knees without assistance from neighbor due to slowly progressing lower extremity weakness. ED findings/work-up -CT, pulmonary embolism, multiple, CV strain, D-dimer 1220 --EKG, irregular only due to PACs, first-degree AV block --VS: BP 192/117, HR 63, RR 22 POX 94% --Troponin 0.21 Acute hospital problems Pulmonary embolism, CV strain, non-decompensating Chronic/stable conditions T2DM, A1C 7.3%; holding Metformin x48 hours post contrast, increase PO fluids HLD, simvastatin 40 mg HTN, ARB 100 mg daily, CTZ 25 mg daily Toprol 50 mg Restless leg syndrome Obesity, BMI 98% History of breast CA Disposition/overall plan --Patient meets ongoing qualification for acute inpatient stay 2/2 CV monitoring due to high risk medications, anticoagulation, and further diagnostics --Anticoagulation, pTT q6hrs, Will start coumadin today and continue IV heparin until INR is within therapeutic range --Monitor BP/MAP very closely, report increased respiratory rate, tachycardia, chest pain --Venous ultrasounds today BLE --Teds support stockings --Do Not resuscitate Consultations --PT/public health social worker --Outpatient pharmacy [facility] to determine if Part D plan Social , lives alone - Mortality Measure Prognosis:: Good
[2020-04-26] MEDS: Warfarin 5 MG Tab PO SCH (18:05)
[2020-04-26] MEDS: Simvastatin 20 MG Tab PO SCH (21:03)
[2020-04-27] MEDS: Heparin Sodium/D5W 250 ML IV SCH ×2 (04:15→22:38)
[2020-04-27] MEDS: Insulin Aspart 100 Units/ML 3 ML Pen SUBCUT SCH ×4 (07:57→21:56)
[2020-04-27] MEDS: Hydrochlorothiazide 25 MG Tab PO SCH (08:58)
[2020-04-27] MEDS: Metoprolol Succinate 25 MG Tab.ER PO SCH (08:59)
[2020-04-27] MEDS: Losartan 50 MG Tab PO SCH (08:59)
[2020-04-27] MEDS ORDERED: 50% Dextrose in Water 50 ML Syringe IV PRN (09:19)
[2020-04-27] MEDS ORDERED: Glucagon,Human Recombinant 1 MG Vial IM PRN (09:19)
--- NOTE | 2020-04-27 09:20 | PCM.PN ---
- General Info Date of Service: 04/27/20 Functional Status: Reports: Tolerating Diet, Urinating, Incentive Spirometry. Denies: New Symptoms - Review of Systems General: Reports: No Symptoms HEENT: Reports: No Symptoms Pulmonary: Reports: No Symptoms Cardiovascular: Reports: No Symptoms Gastrointestinal: Reports: No Symptoms Genitourinary: Reports: No Symptoms Musculoskeletal: Reports: Leg Pain Skin: Reports: Pallor Neurological: Reports: Pre-Existing Deficit, Difficulty Walking, Weakness, Gait Disturbance. Denies: Confusion, Numbness, Paresthesia, Tremors, Change in Speech Psychiatric: Reports: No Symptoms - Patient Data Vitals - Most Recent: Last Vital Signs Temp 98.2 F 04/27/20 06:18 Pulse 67 04/27/20 08:59 Resp 16 04/27/20 06:18 BP 141/89 H 04/27/20 08:59 Pulse Ox 94 L 04/27/20 06:18 Weight - Most Recent: 240 lb I&O - Last 24 Hours: Intake & Output 04/26/20 04/27/20 04/27/20 22:59 06:59 14:59 Intake Total 400 180 Output Total 200 Balance 200 180 Lab Results Last 24 Hours: Laboratory Results - last 24 hr 04/26/20 04/26/20 04/26/20 Range/Units 14:10 14:10 21:00 PT 9.9 (9.2-11.2) SEC INR 1.0 (0.9-1.1) APTT 49.4 H D 63.7 H* (22.8-31.4) SEC POC Glucose (74-100) mg/dL 04/26/20 04/27/20 04/27/20 Range/Units 21:01 03:10 04:10 PT 10.2 (9.2-11.2) SEC INR 1.0 (0.9-1.1) APTT 71.4 H* (22.8-31.4) SEC POC Glucose 198 H (74-100) mg/dL Med Orders - Current: Current Medications Dextrose/Water (Dextrose 50% In Water) 50 ml IV ASDIRECTED PRN PRN Reason: Hypoglycemia Glucagon (Glucagen) 1 mg IM ASDIRECTED PRN PRN Reason: Hypoglycemia Hydrochlorothiazide (Hydrochlorothiazide) 25 mg PO DAILY SHU Last Admin: 11/04/20 08:58 Dose: 25 mg Documented by: Sodium Chloride (Normal Saline) 100 mls @ 200 mls/hr IV ASDIRECTED [facility] Heparin Sodium/Dextrose () 250 mls @ 13.42 mls/hr IV TITRATE [facility]; Protocol Last Titration: 04/27/20 04:41 Dose: 1,440 units/hr, 14.4 mls/hr Documented by: Sodium Chloride (Normal Saline) 250 mls @ 100 mls/hr IV ASDIRECTED [facility] Insulin Aspart (Novolog) 0 unit SUBCUT WITHMEALSANDBED [facility]; Protocol Last Admin: 04/27/20 07:57 Dose: 1 units Documented by: Losartan Potassium (Cozaar) 100 mg PO DAILY [facility] Last Admin: 04/27/20 08:59 Dose: 100 mg Documented by: Magnesium Hydroxide (Milk Of Magnesia) 30 ml PO DAILY PRN PRN Reason: Constipation Last Admin: 04/26/20 06:34 Dose: 30 ml Documented by: Metoprolol Succinate (Toprol Xl) 75 mg PO DAILY [facility] Last Admin: 04/27/20 08:59 Dose: 50 mg Documented by: Simvastatin (Zocor) 40 mg PO BEDTIME [facility] Last Admin: 04/26/20 21:03 Dose: 40 mg Documented by: Warfarin Sodium (Coumadin) 5 mg PO DAILY@1800 [facility] Last Admin: 04/26/20 18:05 Dose: 5 mg Documented by: Warfarin Sodium (Pharmacy To Dose - Warfarin) 1 dose PO ASDIRECTED [facility] Discontinued Medications Heparin Sodium (Porcine) (Heparin Sodium) 4,000 units IVPUSH ONETIME ONE Stop: 04/25/20 17:02 Last Admin: 04/25/20 17:11 Dose: 4,000 units Documented by: Heparin Sodium (Porcine) (Heparin Lock Flush 100 Units/Ml) 1,500 units IVPUSH ONETIME ONE Stop: 04/26/20 01:16 Last Admin: 04/26/20 01:11 Dose: 1,500 units Documented by: Hydralazine HCl (Apresoline) 5 mg IVPUSH ONETIME ONE Stop: 04/25/20 18:21 Last Admin: 04/25/20 18:25 Dose: 5 mg Documented by: Iopamidol ([id number] (76%)) 100 ml IV ONETIME ONE Stop: 04/25/20 16:35 Last Admin: 04/25/20 21:24 Dose: Not Given Documented by: - Exam Quality Assessment: Supplemental Oxygen, DVT Prophylaxis General: Alert, Oriented Neck: Supple Lungs: Clear to Auscultation, Normal Respiratory Effort Cardiovascular: Regular Rate, Regular Rhythm. No: Murmurs GI/Abdominal Exam: Soft, No Distention (Female) Exam: Deferred Extremities: No Pedal Edema Peripheral Pulses: 2+: Radial (L), Radial (R) Neurological: Normal Speech, Normal Tone Psy/Mental Status: Alert, Normal Affect, Normal Mood Sepsis Event Note - Evaluation Sepsis Screening Result: No Definite Risk - Focused Exam Vital Signs: Vital Signs Temp Pulse Pulse Resp BP BP Pulse Ox 04/27/20 08:59 67 141/89 H 04/27/20 06:18 98.2 F 60 16 150/88 H 94 L 04/27/20 03:00 97.9 F 54 L 20 141/70 H 92 L 04/26/20 22:15 97.9 F 55 L 20 165/82 H 93 L - Problem List Review Problem List Initiated/Reviewed/Updated: Yes - My Orders Last 24 Hours: My Active Orders 04/26/20 10:26 Antiembolic Devices [RC] 09,21 PT Evaluation and Treatment [CONS] Routine IMTIAZ Hose [Antiembolic Hose] [OM.PC] Routine 04/26/20 14:00 Warfarin Pharmacy to Dose [Pharmacy to Dose - Warfarin] 1 dose PO ASDIRECTED 04/26/20 18:00 Warfarin [Coumadin] 5 mg PO DAILY@1800 04/27/20 10:00 Venous Doppler Lwr Ext Bi [US] Routine 04/27/20 10:10 PTT,PARTIAL THROMBOPLSTIN TIME [COAG] Q6H 04/27/20 16:10 PTT,PARTIAL THROMBOPLSTIN TIME [COAG] Q6H 04/27/20 22:10 PTT,PARTIAL THROMBOPLSTIN TIME [COAG] Q6H 04/28/20 04:10 PTT,PARTIAL THROMBOPLSTIN TIME [COAG] Q6H 04/28/20 05:11 INR,PT,PROTHROMBIN TIME [COAG] Routine 04/28/20 10:10 PTT,PARTIAL THROMBOPLSTIN TIME [COAG] Q6H 04/28/20 16:10 PTT,PARTIAL THROMBOPLSTIN TIME [COAG] Q6H 04/28/20 22:10 PTT,PARTIAL THROMBOPLSTIN TIME [COAG] Q6H - Plan Plan:: History of present illness [place] very pleasant alert and oriented female that was admitted into inpatient status via the ED yesterday April 25 due to a diagnosis of pulmonary embolism. Patient was in her normal course of relative good health (other than lower extremity weakness) she suddenly started having sortness of breath with some mild anterior chest wall discomfort prompting ED presentation. Patient does denote that she was not able to get up off of her knees without assistance from neighbor due to slowly progressing lower extremity weakness. ED findings/work-up -CT, pulmonary embolism, multiple, CV strain, D-dimer 1220 --EKG, irregular only due to PACs, first-degree AV block --VS: BP 192/117, HR 63, RR 22 POX 94% --Troponin 0.21 Hospital course 04/27/2020; patient is doing well with no hemoptysis tachycardia chest pain cough or any signs of adverse events of heparin and/or in. INR subtherapeutic, heparin drip per protocol. Started 5 mg of warfarin last night. Reviewed telemetry no complications. Troponin trended favorably. Signs of hemodynamic compromise adequate MAP Acute hospital problems Pulmonary embolism, CV strain, non-decompensating Chronic/stable conditions T2DM, A1C 7.3%; holding Metformin x48 hours post contrast, increase PO fluids, add 5 units long-acting Lantus HLD, simvastatin 40 mg HTN, ARB 100 mg daily, HCTZ 25 mg daily Toprol 50 mg Restless leg syndrome Obesity, BMI 98% History of breast CA Disposition/overall plan --Patient meets ongoing qualification for acute inpatient stay due to high risk medications, anticoagulation, and further diagnostics (US today) --Anticoagulation, pTT q6hrs, started warfarin 04/26/2020, continue IV heparin until INR therapeutic --Monitor BP/MAP very closely, report increased respiratory rate, tachycardia, chest pain --Venous ultrasounds today BLE --Add Lantus 5 units daily --DT consultation --Teds support stockings --Do Not resuscitate --PT eval will evaluate patient since lives alone with subsequent difficulty in ambulation with lower extremity weakness likely anticipate SN[facility] tomorrow Consultations --PT/social work assistant Social --, lives alone
[2020-04-27] MEDS: Insulin Glargine,Human Rec. Analog 100 Units/ML 3 ML Pen SUBCUT SCH (09:49)
--- NOTE | 2020-04-27 11:29 | US ---
[id number] US/US Venous Doppler LE Bilateral EXAM: US Venous Doppler LE Bilateral INDICATION: RULE OUT DVT, DX: PULMONARY EMBOLISM, POSSIBLE COMPARISON: None. DISCUSSION: The deep venous structures are compressible. No valvular incompetence or pulsatility seen. Spontaneity, phasicity and response to augmentation were noted by the technologist. Echogenic chronic appearing occlusive thrombus in the left saphenous vein. Correlate for superficial thrombophlebitis. IMPRESSION: Negative for DVT. Jaime Wang MD 04/27/20 1128 Thank you for allowing us to participate in the care of your patient.
[2020-04-27] MEDS: Warfarin 5 MG Tab PO SCH (17:52)
[2020-04-27] MEDS: Simvastatin 20 MG Tab PO SCH (21:53)
[2020-04-28] MEDS: Insulin Aspart 100 Units/ML 3 ML Pen SUBCUT SCH (08:30)
[2020-04-28] MEDS: Insulin Glargine,Human Rec. Analog 100 Units/ML 3 ML Pen SUBCUT SCH (08:46)
[2020-04-28] MEDS: Losartan 50 MG Tab PO SCH (08:54)
[2020-04-28] MEDS: Hydrochlorothiazide 25 MG Tab PO SCH (08:55)
[2020-04-28] MEDS ORDERED: Metoprolol Succinate 50 MG Tab.ER PO SCH (09:00)
[2020-04-28 09:16] LABS: PTT,PARTIAL THROMBOPLSTIN TIME 55.6 SEC (22.8-31.4)
[2020-04-28] MEDS ORDERED: Gadobenate Dimeglumine 529 MG/ML 20 ML SDV IVPUSH ONE (12:25)
[2020-04-28] MEDS ORDERED: Enoxaparin 100 MG/1 ML Syringe SUBCUT SCH (15:30)
== END 2020-04-28 11:04 | disposition swing bed (61) | DRG 176 ==
LOC: KA.ED 15:10 → KA.MS 18:38 → UNDOADMIN 18:38
PROVIDERS: ADMIT Family Medicine; ATTEND Family Medicine
DX: I26.99 Other pulmonary embolism without acute cor pulmonale (principal); E13.8 Other specified diabetes mellitus with unspecified complications; Z66 Do not resuscitate; E13.9 Other specified diabetes mellitus without complications; I51.9 Heart disease, unspecified; E78.5 Hyperlipidemia, unspecified; G25.81 Restless legs syndrome; E66.9 Obesity, unspecified; I10 Essential (primary) hypertension; Z20.828 Contact with and (suspected) exposure to other viral communicable diseases; H54.7 Unspecified visual loss; K59.09 Other constipation; I51.7 Cardiomegaly; R79.89 Other specified abnormal findings of blood chemistry; E78.00 Pure hypercholesterolemia, unspecified; Z79.01 Long term (current) use of anticoagulants; Z79.4 Long term (current) use of insulin; Z85.3 Personal history of malignant neoplasm of breast; Z79.899 Other long term (current) drug therapy; Z90.710 Acquired absence of both cervix and uterus; Z98.49 Cataract extraction status, unspecified eye; Z68.34 Body mass index [BMI] 34.0-34.9, adult
CPT/HCPCS: 36415; 71046; 71260; 80053; 82550; 82553; 82962; 83880; 84484; 85025; 85379; 85610; 85730; 93005; 93970; 96374; 96375; 97161-GP; 99284; 99285-25; A9270-GY; J0360; J1642; J1644; J1815-GY; U0002

== ENCOUNTER 2020-04-28 07:01 | Inpatient (IN) | payer MEDICARE, BC ==
[2020-04-28] MEDS ORDERED: 50% Dextrose in Water 50 ML Syringe IV PRN (11:02)
[2020-04-28] MEDS ORDERED: Glucagon,Human Recombinant 1 MG Vial IM PRN ×2 (11:02)
[2020-04-28] MEDS: Insulin Aspart 100 Units/ML 3 ML Pen SUBCUT SCH ×4 (12:34→21:04)
[2020-04-28] MEDS: Enoxaparin 100 MG/1 ML Syringe SUBCUT SCH (15:13)
[2020-04-28] MEDS: Magnesium Hydroxide 400 MG/5 ML Susp 30 ML Cup PO PRN (15:14)
[2020-04-28] MEDS: Warfarin 5 MG Tab PO SCH (18:13)
[2020-04-28] MEDS: Simvastatin 20 MG Tab PO SCH (20:45)
[2020-04-29] MEDS: Enoxaparin 100 MG/1 ML Syringe SUBCUT SCH ×2 (05:41→18:04)
[2020-04-29] MEDS: Insulin Aspart 100 Units/ML 3 ML Pen SUBCUT SCH ×2 (07:53→12:13)
[2020-04-29] MEDS: Hydrochlorothiazide 25 MG Tab PO SCH (08:12)
[2020-04-29] MEDS: Losartan 50 MG Tab PO SCH (08:12)
[2020-04-29] MEDS ORDERED: Metoprolol Succinate 50 MG Tab.ER PO SCH (09:00)
[2020-04-29] MEDS ORDERED: Insulin Glargine,Human Rec. Analog 100 Units/ML 3 ML Pen SUBCUT SCH (09:00)
[2020-04-29] MEDS ORDERED: Metoprolol Succinate 25 MG Tab.ER PO ONE (09:02)
[2020-04-29] MEDS: Magnesium Hydroxide 400 MG/5 ML Susp 30 ML Cup PO PRN (13:39)
[2020-04-29] MEDS: Warfarin 5 MG Tab PO SCH (18:04)
[2020-04-29] MEDS: Simvastatin 20 MG Tab PO SCH (20:29)
[2020-04-30] MEDS: Enoxaparin 100 MG/1 ML Syringe SUBCUT SCH ×2 (06:04→18:01)
[2020-04-30] MEDS: Losartan 50 MG Tab PO SCH (08:15)
[2020-04-30] MEDS: Metoprolol Succinate 50 MG Tab.ER PO SCH (08:16)
[2020-04-30] MEDS: Hydrochlorothiazide 25 MG Tab PO SCH (08:16)
[2020-04-30] MEDS: metFORMIN 500 MG Tab.ER PO SCH (08:16)
[2020-04-30] MEDS: Warfarin 5 MG Tab PO SCH (18:01)
[2020-04-30] MEDS: Simvastatin 20 MG Tab PO SCH (21:26)
[2020-05-01] MEDS: Enoxaparin 100 MG/1 ML Syringe SUBCUT SCH ×3 (07:20→20:07)
[2020-05-01] MEDS: Metoprolol Succinate 50 MG Tab.ER PO SCH (08:07)
[2020-05-01] MEDS: metFORMIN 500 MG Tab.ER PO SCH (08:08)
[2020-05-01] MEDS: Hydrochlorothiazide 25 MG Tab PO SCH (08:08)
[2020-05-01] MEDS: Losartan 50 MG Tab PO SCH (08:08)
[2020-05-01] MEDS ORDERED: Non-Formulary Medication 1 Each (Losartan [Cozaar] 100 MG) PO SCH (09:45)
[2020-05-01] MEDS ORDERED: Hydrochlorothiazide 25 MG Tab PO SCH (09:45)
[2020-05-01] MEDS ORDERED: Metoprolol Succinate 50 MG Tab.ER PO SCH (09:45)
[2020-05-01] MEDS: Warfarin 5 MG Tab PO SCH (17:02)
[2020-05-01] MEDS: Simvastatin 20 MG Tab PO SCH (20:07)
[2020-05-01] MEDS ORDERED: NIACIN 500 MG PO SCH (21:00)
[2020-05-02] MEDS: metFORMIN 500 MG Tab.ER PO SCH (08:39)
[2020-05-02] MEDS: Metoprolol Succinate 50 MG Tab.ER PO SCH (08:40)
[2020-05-02] MEDS: Hydrochlorothiazide 25 MG Tab PO SCH (08:40)
[2020-05-02] MEDS: Cholecalciferol (Vitamin D3) 25 MCG Tab PO SCH (08:40)
[2020-05-02] MEDS: Losartan 50 MG Tab PO SCH (08:41)
[2020-05-02] MEDS: Lutein/Minerals/Vitamins A, C & E Tab PO SCH (08:41)
[2020-05-02] MEDS ORDERED: metFORMIN 500 MG Tab.ER PO SCH (09:00)
[2020-05-02] MEDS ORDERED: Non-Formulary Medication 1 Each (Simvastatin [Simvastatin] 40 MG) PO SCH (09:00)
[2020-05-02] MEDS: Enoxaparin 100 MG/1 ML Syringe SUBCUT SCH ×2 (09:23→20:10)
[2020-05-02] MEDS ORDERED: Warfarin 5 MG Tab PO ONE (09:36)
[2020-05-02] MEDS: Simvastatin 20 MG Tab PO SCH (20:10)
[2020-05-03] MEDS: Lutein/Minerals/Vitamins A, C & E Tab PO SCH (08:45)
[2020-05-03] MEDS: metFORMIN 500 MG Tab.ER PO SCH (08:45)
[2020-05-03] MEDS: Cholecalciferol (Vitamin D3) 25 MCG Tab PO SCH (08:46)
[2020-05-03] MEDS: Hydrochlorothiazide 25 MG Tab PO SCH (08:47)
[2020-05-03] MEDS: Losartan 50 MG Tab PO SCH (08:47)
[2020-05-03] MEDS: Metoprolol Succinate 50 MG Tab.ER PO SCH (08:49)
[2020-05-03] MEDS: Enoxaparin 100 MG/1 ML Syringe SUBCUT SCH (08:50)
--- NOTE | 2020-05-03 15:11 | PCM.HP.2 ---
H&P History of Present Illness - General Date of Service: 04/28/20 Admit Problem/Dx: Admission Diagnosis/Problem Admission Diagnosis/Problem Pulmonary embolism - Related Data Allergies/Adverse Reactions: Allergies Allergy/AdvReac Type Severity Reaction Status Date / Time No Known Allergies Allergy Verified 04/29/20 12:13 Home Medications: Home Meds Metoprolol Succinate 75 mg PO DAILY 09/02/17 [History] Simvastatin 40 mg PO DAILY 09/02/17 [History] Niacin 500 mg PO BID 04/25/20 [History] Vit C/E/Zn/Coppr/Lutein/Zeaxan [Preservision Areds 2 Softgel] 1 each PO DAILY 04/25/20 [History] hydroCHLOROthiazide [Hydrochlorothiazide] 25 mg PO DAILY 04/25/20 [History] Cholecalciferol (Vitamin D3) [Vitamin D3] 2,000 unit PO DAILY 04/29/20 [History] Losartan [Cozaar] 100 mg PO DAILY 04/29/20 [History] metFORMIN HCl [Metformin HCl ER] 500 mg PO DAILY 04/29/20 [History] Warfarin [Coumadin] 5 mg PO DAILY@1800 #30 tablet 05/03/20 [Rx] Past Medical History HEENT History: Reports: Impaired Vision Cardiovascular History: Reports: High Cholesterol, Hypertension Respiratory History: Reports: PE, SOB Gastrointestinal History: Reports: Chronic Constipation Genitourinary History: Reports: Urinary Incontinence 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 Neurological History: Reports: Other (See Below) Other Neuro History: RESTLESS LEG SYNDROME Endocrine/Metabolic History: Reports: Diabetes, Type II Oncologic (Cancer) History: Reports: Breast - Infectious Disease History Infectious Disease History: Reports: Chicken Pox, Measles - Past Surgical History HEENT Surgical History: Reports: Cataract Surgery, Tonsillectomy Cardiovascular Surgical History: Reports: None Respiratory Surgical History: Reports: None GI Surgical History: Reports: None Female Surgical History: Reports: Hysterectomy, Mastectomy, Other (See Below) Other Female Surgeries/Procedures: Right breast mastectomy Endocrine Surgical History: Reports: None Neurological Surgical History: Reports: None Musculoskeletal Surgical History: Reports: None Oncologic Surgical History: Reports: Mastectomy - Past Imaging History Past Imaging History: Reports: CAT Scan, Xray Social & Family History - Family History Family Medical History: No Pertinent Family History Oncologic: Reports: Colon, Leukemia, Other (See Below) Other Oncologic Family History: Mother had leukemia. Father had colon cancer. - Tobacco Use Tobacco Use Status *Q: Never Tobacco User - Caffeine Use Caffeine Use: Reports: Coffee, Tea - Recreational Drug Use Recreational Drug Use: No - Living Situation & Occupation Living situation: Reports: , Alone H&P Review of Systems - Review of Systems: Review Of Systems: See Below General: Reports: No Symptoms HEENT: Reports: No Symptoms Pulmonary: Reports: No Symptoms Cardiovascular: Reports: No Symptoms Gastrointestinal: Reports: No Symptoms Genitourinary: Reports: No Symptoms Musculoskeletal: Reports: No Symptoms Skin: Reports: No Symptoms Psychiatric: Reports: No Symptoms Neurological: Reports: No Symptoms Hematologic/Lymphatic: Reports: No Symptoms Immunologic: Reports: No Symptoms Exam - Exam Exam: See Below - Vital Signs Vital Signs: Last Vital Signs Temp 96.4 F L 05/03/20 06:09 Pulse 59 L 05/03/20 08:49 Resp 18 05/03/20 06:09 BP 176/74 H 05/03/20 08:49 Pulse Ox 92 L 05/03/20 06:09 Weight: 240 lb - Exam Quality Assessment: Supplemental Oxygen General: Alert HEENT: Conjunctiva Clear Neck: Supple Lungs: Clear to Auscultation, Normal Respiratory Effort Cardiovascular: Regular Rate, Regular Rhythm GI/Abdominal Exam: Normal Bowel Sounds, Soft, Non-Tender, No Organomegaly, No Distention, No Abnormal Bruit, No Mass, Pelvis Stable (Female) Exam: Deferred Back Exam: No: CVA Tenderness (L), CVA Tenderness (R) Skin: Warm, Dry, Intact, Other (No signs of bruising) Neurological: Cranial Nerves Intact, Normal Speech, Normal Tone, Sensation Intact Neuro Extensive - Motor, Sensory, Reflexes: CN II-XII Intact Psychiatric: Alert, Normal Affect, Normal Mood - Patient Data Lab Results Last 24 hrs: Laboratory Results - last 24 hr 05/03/20 05/03/20 Range/Units 07:12 07:35 PT TNP INR 2.2 H (0.9-1.1) POC Glucose 155 H (74-100) mg/dL Sepsis Event Note - Evaluation Sepsis Screening Result: No Definite Risk - Focused Exam Vital Signs: Vital Signs Temp Pulse Pulse Resp BP BP Pulse Ox 05/03/20 08:49 59 L 176/74 H 05/03/20 08:47 176/74 H 05/03/20 06:09 96.4 F L 53 L 18 152/75 H 92 L Problem List Initiated/Reviewed/Updated: Yes Assessment/Plan Comment:: History of present illness Nicole is an 85-year-old female that was initially admitted into inpatient status via the ED April 25 due due to a pulmonary embolism. Patient was in her normal course of relative good health (other than lower extremity weakness) when she suddenly started having SOB with some mild anterior chest wall discomfort prompting ED presentation. She also had lower extremity weakness and she was not able to get up after kneeling on the floor and required assistance from a neighbor. She was admitted for anticoagulation and further workup. Primary group home problem Lateral lower extremity weakness Pulmonary embolism. Chronic/stable conditions T2DM, A1C 7.3%; now back on metformin HLD, simvastatin 40 mg HTN, ARB 100 mg daily, CTZ 25 mg daily Toprol 75 mg Restless leg syndrome Obesity, History of breast CA Disposition/overall plan --Will place patient in swing bed therapy today April 28 --Physical therapy --Discontinued heparin and changed to low molecular weight heparin, continue Coumadin until INR therapeutic - Mortality Measure Prognosis:: Good
--- NOTE | 2020-05-03 15:16 | PCM.DCSUM1 ---
Discharge Summary - Hospital Course Diagnosis: Stroke: No - Discharge Data Discharge Date: 05/03/20 Discharge Disposition: Home, W Home Health Agency 06 Condition: Good - Referral to Home Health Date of Face to Face Encounter: 05/03/20 Reason for Homebound Status: This is a [id number] encounter for the need for home health with physical therapy occupational therapy and nursing care to help develop an in-home safety program and careful monitoring as she is on high risk medications of Coumadin with the need for frequent evaluations of her INR and therefore medication adjustments of her Coumadin. She did require physical therapy in the hospital due to lower extremity weakness and gait instability as she did suffer a fall. Patient is homebound due to the fact of her diagnoses of lower extremity weakness. Please assist in developing a program in-home safety program to monitor for any hazards, the use of a gait belt may need to be required. Also require occupational therapy to assist with ADLs due to her lower extremity weakness. She is at high risk of developing complications if she would develop a fall due to her anticoagulation. He does have a recent diagnosis of pulmonary embolism please monitor for any shortness of breath hematuria or any CV side effects Primary Care Physician: Rhonda Centeno PA-C Skilled Need: This is a [id number] encounter for the need for home health with physical therapy occupational therapy and nursing care to help develop an in- home safety program and careful monitoring as she is on high risk medications of Coumadin with the need for frequent evaluations of her INR and therefore medication adjustments of her Coumadin. She did require physical therapy in the hospital due to lower extremity weakness and gait instability as she did suffer a fall. Patient is homebound due to the fact of her diagnoses of lower extremity weakness. Please assist in developing a program in-home safety program to monitor for any hazards, the use of a gait belt may need to be required. Also require occupational therapy to assist with ADLs due to her lower extremity weakness. She is at high risk of developing complications if she would develop a fall due to her anticoagulation. He does have a recent diagnosis of pulmonary embolism please monitor for any shortness of breath hematuria or any CV side effects - Patient Summary/Data Consults: Consultations 04/28/20 11:02 Consult to Case Management/[employer]inder [CONS] Routine PT Evaluation and Treatment [CONS] Routine - Patient Instructions Showering/Bathing: May Shower Notify Provider of: Fever Other/Special Instructions: Report any shortness of breath or cough. For any bleeding gums or bloody urine or any signs of bruising or bleeding. Take your Coumadin every day according to the Coumadin clinic. Coumadin clinic in [place] will manage your Coumadin - Discharge Plan *PRESCRIPTION DRUG MONITORING PROGRAM REVIEWED*: Not Applicable *COPY OF PRESCRIPTION DRUG MONITORING REPORT IN PATIENT ALEXUS: Not Applicable Prescriptions/Med Rec: Warfarin [Coumadin] 5 mg PO DAILY@1800 #30 tablet Home Medications: Home Meds Metoprolol Succinate 75 mg PO DAILY 09/02/17 [History] Simvastatin 40 mg PO DAILY 09/02/17 [History] Niacin 500 mg PO BID 04/25/20 [History] Vit C/E/Zn/Coppr/Lutein/Zeaxan [Preservision Areds 2 Softgel] 1 each PO DAILY 04/25/20 [History] hydroCHLOROthiazide [Hydrochlorothiazide] 25 mg PO DAILY 04/25/20 [History] Cholecalciferol (Vitamin D3) [Vitamin D3] 2,000 unit PO DAILY 04/29/20 [History] Losartan [Cozaar] 100 mg PO DAILY 04/29/20 [History] metFORMIN HCl [Metformin HCl ER] 500 mg PO DAILY 04/29/20 [History] Warfarin [Coumadin] 5 mg PO DAILY@1800 #30 tablet 05/03/20 [Rx] Referrals: [facility] [Outside] Glenn Herrera NP [Nurse Practitioner] - 05/06/20 - Discharge Summary/Plan Comment DC Time >30 min.: Yes Discharge Summary/Plan Comment: Final diagnosis Lower extremity weakness much improved Pulmonary embolism, no sequela History summary 85-year-old female that was initially admitted into inpatient status via the ED April 25 due due to a pulmonary embolism. She was treated as inpatient with heparin drip and Coumadin and eventually she was switched to low molecular weight heparin. Hospital course patient did very well throughout her correction stay. She was switched from a heparin drip and was given Coumadin and her INR slowly increased therefore were able to eventually discharge her on Coumadin in hopes eventually get her on a factor X A inhibitor when she can afford it. Throughout her stay she had no CV side effects of pulmonary embolism. She had no hemoptysis tachycardia chest pain cough or any signs of adverse events of heparin. She work with physical therapy and did exceedingly well. Medication changes/adjustments upon discharge Toprol increased to 75 mg daily Coumadin 5 mg daily, INR clinic to manage, consult placed This is a [id number] encounter for the need for home health with physical therapy occupational therapy and nursing care to help develop an in-home safety program and careful monitoring as she is on high risk medications of Coumadin with the need for frequent evaluations of her INR and therefore medication adjustments of her Coumadin. She did require physical therapy in the hospital due to lower extremity weakness and gait instability as she did suffer a fall. Patient is homebound due to the fact of her diagnoses of lower extremity weakness. Please assist in developing a program in-home safety program to monitor for any hazards, the use of a gait belt may need to be required. Also require occupational therapy to assist with ADLs due to her lower extremity weakness. She is at high risk of developing complications if she would develop a fall due to her anticoagulation. He does have a recent diagnosis of pulmonary embolism please monitor for any shortness of breath hematuria or any CV side effects - General Info Date of Service: 05/03/20 Functional Status: Reports: Pain Controlled - Review of Systems General: Denies: Fever, Weakness Pulmonary: Reports: No Symptoms Cardiovascular: Reports: No Symptoms Genitourinary: Reports: No Symptoms Musculoskeletal: Reports: No Symptoms Skin: Reports: No Symptoms Neurological: Reports: No Symptoms Psychiatric: Reports: No Symptoms - Patient Data Vitals - Most Recent: Last Vital Signs Temp 96.4 F L 05/03/20 06:09 Pulse 59 L 05/03/20 08:49 Resp 18 05/03/20 06:09 BP 176/74 H 05/03/20 08:49 Pulse Ox 92 L 05/03/20 06:09 Weight - Most Recent: 240 lb I&O - Last 24 hours: Intake & Output 05/03/20 05/03/20 05/03/20 06:59 14:59 22:59 Intake Total 50 Balance 50 Lab Results - Last 24 hrs: Laboratory Results - last 24 hr 05/03/20 05/03/20 Range/Units 07:12 07:35 PT TNP INR 2.2 H (0.9-1.1) POC Glucose 155 H (74-100) mg/dL Med Orders - Current: Current Medications Discontinued Medications Cholecalciferol (Vitamin D3) 50 mcg PO DAILY [facility] Last Admin: 05/03/20 08:46 Dose: 50 mcg Documented by: Dextrose/Water (Dextrose 50% In Water) 50 ml IV ASDIRECTED PRN PRN Reason: Hypoglycemia Enoxaparin Sodium (Lovenox) 100 mg SUBCUT Q12H [facility] Last Admin: 04/29/20 05:41 Dose: 100 mg Documented by: Enoxaparin Sodium (Lovenox) 100 mg SUBCUT Q12H [facility] Last Admin: 05/01/20 07:20 Dose: Not Given Documented by: Enoxaparin Sodium (Lovenox) 100 mg SUBCUT Q12H [facility] Last Admin: 05/03/20 08:50 Dose: 100 mg Documented by: Glucagon (Glucagen) 1 mg IM ASDIRECTED PRN PRN Reason: Hypoglycemia Hydrochlorothiazide (Hydrochlorothiazide) 25 mg PO DAILY [facility] Last Admin: 05/03/20 08:47 Dose: 25 mg Documented by: Hydrochlorothiazide (Hydrochlorothiazide) 25 mg PO DAILY [facility] Last Admin: 05/01/20 11:58 Dose: Not Given Documented by: Insulin Aspart (Novolog) 0 unit SUBCUT WITHMEALSANDBED [facility]; Protocol Last Admin: 04/29/20 12:13 Dose: Not Given Documented by: Insulin Glargine (Lantus Solostar) 5 units SUBCUT DAILY [facility] Last Admin: 04/29/20 08:10 Dose: 5 unit Documented by: Losartan Potassium (Cozaar) 100 mg PO DAILY [facility] Last Admin: 05/03/20 08:47 Dose: 100 mg Documented by: Magnesium Hydroxide (Milk Of Magnesia) 30 ml PO DAILY PRN PRN Reason: Constipation Last Admin: 04/29/20 13:39 Dose: 30 ml Documented by: Metformin HCl (Glucophage Xr) 500 mg PO DAILY [facility] Last Admin: 05/03/20 08:45 Dose: 500 mg Documented by: Metformin HCl (Glucophage Xr) 500 mg PO DAILY [facility] Metoprolol Succinate (Toprol Xl) 50 mg PO DAILY [facility] Last Admin: 04/29/20 08:12 Dose: 50 mg Documented by: Metoprolol Succinate (Toprol Xl) 75 mg PO DAILY [facility] Last Admin: 05/03/20 08:49 Dose: 75 mg Documented by: Metoprolol Succinate (Toprol Xl) 25 mg PO ONETIME ONE Stop: 04/29/20 09:03 Last Admin: 04/29/20 10:11 Dose: 25 mg Documented by: Metoprolol Succinate (Toprol Xl) 50 mg PO DAILY [facility] Last Admin: 05/01/20 11:58 Dose: Not Given Documented by: Multivitamins/Minerals (Ocuvite) 1 each PO DAILY [facility] Last Admin: 05/03/20 08:45 Dose: 1 each Documented by: Non-Formulary Medication (Losartan [Cozaar]) 100 mg PO DAILY [facility] Last Admin: 05/01/20 11:58 Dose: Not Given Documented by: Non-Formulary Medication (Niacin) 500 mg PO BID [facility] Non-Formulary Medication (Simvastatin [Simvastatin]) 40 mg PO DAILY [facility] Simvastatin (Zocor) 40 mg PO BEDTIME [facility] Last Admin: 05/02/20 20:10 Dose: 40 mg Documented by: Warfarin Sodium (Pharmacy To Dose - Warfarin) 1 dose PO ASDIRECTED [facility] Warfarin Sodium (Coumadin) 5 mg PO DAILY@1800 [facility] Last Admin: 05/01/20 17:02 Dose: 5 mg Documented by: Warfarin Sodium (Coumadin) 7.5 mg PO ONETIME ONE Stop: 05/02/20 09:37 Last Admin: 05/02/20 10:00 Dose: 7.5 mg Documented by: - Exam Quality Assessment: Denies: Supplemental Oxygen, Skin Breakdown General: Reports: Alert, Oriented, Cooperative Neck: Reports: Supple Lungs: Reports: Clear to Auscultation, Normal Respiratory Effort Cardiovascular: Reports: Regular Rate, Regular Rhythm GI/Abdominal Exam: Soft Skin: Reports: Warm, Dry, Intact Psy/Mental Status: Reports: Alert, Normal Affect, Normal Mood
== END 2020-05-03 13:00 | disposition home health service (06) | DRG 947 ==
LOC: KA.MS 11:04
PROVIDERS: ADMIT Nurse Practitioner Family; ATTEND Nurse Practitioner Family
DX: R53.1 Weakness (principal); I26.99 Other pulmonary embolism without acute cor pulmonale; W19.XXXA Unspecified fall, initial encounter; R31.9 Hematuria, unspecified; R06.02 Shortness of breath; R26.89 Other abnormalities of gait and mobility; H54.7 Unspecified visual loss; E78.00 Pure hypercholesterolemia, unspecified; M19.90 Unspecified osteoarthritis, unspecified site; E11.9 Type 2 diabetes mellitus without complications; Z86.19 Personal history of other infectious and parasitic diseases; Z79.01 Long term (current) use of anticoagulants; Z99.81 Dependence on supplemental oxygen; Z87.09 Personal history of other diseases of the respiratory system; Z87.19 Personal history of other diseases of the digestive system; Z87.448 Personal history of other diseases of urinary system; Z87.39 Personal history of other diseases of the musculoskeletal system and connective tissue
CPT/HCPCS: 36416; 82962; 85610; 97110-GP; 97161-GP; A9270-GY; J1650

== ENCOUNTER 2020-09-25 11:19 | Emergency (ER) | payer MEDICARE, BC ==
--- NOTE | 2020-09-25 11:42 | EDM.PDOC ---
ED HPI GENERAL MEDICAL PROBLEM - General Chief Complaint: Head Injury Stated Complaint: HEAD INJURY, S/P FALL Time Seen by Provider: 09/25/20 11:41 Source of Information: Reports: Patient, EMS - History of Present Illness INITIAL COMMENTS - FREE TEXT/NARRATIVE: Nicole, 85-year-old female, presents by ambulance today after she slipped and fell on the steps at her daughter's house. She struck the back of her head as well as her posterior thoracic column leading to rib pain. Pain seemingly increases with inspiration. At times she is very active. In her discussion, but then at times states she gets lost in conversation. This is been happening for some time now slowly progressing that she acknowledges. She denies loss of consciousness. She denies any recent illness. 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 Her most recent PT/INR was conducted 9 days ago and was 2.4. Please see nurses notes for details as we printed Coumadin scheduling. Onset: Today, Sudden Duration: Minutes: Location: Reports: Head, Chest Quality: Reports: Pressure, Sharp Severity: Severe Improves with: Reports: None Worsens with: Reports: Movement - Related Data Allergies Allergy/AdvReac Type Severity Reaction Status Date / Time No Known Allergies Allergy Verified 09/25/20 11:31 Home Meds: Home Meds Metoprolol Succinate 75 mg PO DAILY 09/02/17 [History] Simvastatin 40 mg PO BEDTIME 09/02/17 [History] Niacin 500 mg PO BID 04/25/20 [History] Vit C/E/Zn/Coppr/Lutein/Zeaxan [Preservision Areds 2 Softgel] 1 each PO BID 04/25/20 [History] hydroCHLOROthiazide [Hydrochlorothiazide] 25 mg PO DAILY 04/25/20 [History] Cholecalciferol (Vitamin D3) [Vitamin D3] 2,000 unit PO DAILY 04/29/20 [History] Losartan [Cozaar] 100 mg PO DAILY 04/29/20 [History] metFORMIN HCl [Metformin HCl ER] 500 mg PO BID 04/29/20 [History] Warfarin [Coumadin] 5 mg PO DAILY@1800 #30 tablet 05/03/20 [Rx] Warfarin [Coumadin] 2.5 mg PO SUTUTHSA@1800 09/25/20 [History] polyethylene glycoL 3350 [MiraLAX] 1 cap PO BEDTIME PRN 09/25/20 [History] Past Medical History HEENT History: Reports: Impaired Vision Cardiovascular History: Reports: High Cholesterol, Hypertension Respiratory History: Reports: PE, SOB Gastrointestinal History: Reports: Chronic Constipation Genitourinary History: Reports: Urinary Incontinence SITE RELIABILITY ENGINEER History: Reports: , Other (See Below) Other SITE RELIABILITY ENGINEER History: hysterectomy Musculoskeletal History: Reports: Arthritis, Other (See Below) Other Musculoskeletal History: Occasional right upper arm pain. Neurological History: Reports: Other (See Below) Other Neuro History: RESTLESS LEG SYNDROME Endocrine/Metabolic History: Reports: Diabetes, Type II Oncologic (Cancer) History: Reports: Breast - Infectious Disease History Infectious Disease History: Reports: Chicken Pox, Measles - Past Surgical History HEENT Surgical History: Reports: Cataract Surgery, Tonsillectomy Cardiovascular Surgical History: Reports: None Respiratory Surgical History: Reports: None GI Surgical History: Reports: None Female Surgical History: Reports: Hysterectomy, Mastectomy, Other (See Below) Other Female Surgeries/Procedures: Right breast mastectomy Endocrine Surgical History: Reports: None Neurological Surgical History: Reports: None Musculoskeletal Surgical History: Reports: None Oncologic Surgical History: Reports: Mastectomy - Past Imaging History Past Imaging History: Reports: CAT Scan, Xray Social & Family History - Family History Family Medical History: No Pertinent Family History Oncologic: Reports: Colon, Leukemia, Other (See Below) Other Oncologic Family History: Mother had leukemia. Father had colon cancer. - Caffeine Use Caffeine Use: Reports: Coffee, Tea - Living Situation & Occupation Living situation: Reports: , Alone ED ROS GENERAL - Review of Systems Review Of Systems: Comprehensive ROS is negative, except as noted in HPI. ED EXAM, HEAD INJURY - Physical Exam Exam: See Below Text/Narrative:: Alert, and oriented to day and date. 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 No icterus no injection with responsive pupils. No evidence of hemotympanum, pink moist mucous membranes. She is able to speak with no distress complaining of predominant rib pain with mild head pain. Neck is soft supple with no lymphadenopathy there is no tenderness to the spinal column. Thorax is raspy mildly diminished but likely chest wall rib pain contributes to her inspiratory expiratory efforts limiting her depth of breath. Cardiac is occasional ectopic beat but overall has been regular with a grade 1 systolic murmur. Abdomen is rotund soft bowel sounds present no pain or megaly appreciated. She states she had a bowel movement this morning. +2 edema to the lower extremities. Tenderness to the rib margin and abdomen region. #1 Interpretation EKG Date: 09/25/20 Time: 12:12 Rhythm: Other (acc[place] vs poor electrical conduction 1st degree block) [place]: Normal P-Wave: Variable QRS: Wide ST-T: Normal QT: Normal (comparison 25 Apr 2020) Comparison: Change From Previous EKG Course - Vital Signs Last Recorded V/S: Last Vital Signs Temp 97.0 F 09/25/20 11:32 Pulse 72 09/25/20 11:32 Resp 16 09/25/20 11:32 BP 174/103 H 09/25/20 11:32 Pulse Ox 93 L 09/25/20 11:32 - Orders/Labs/Meds Orders: Active Orders 24 hr Category Date Time Status EKG Documentation Completion [RC] ASDIRECTED Care 09/25/20 12:08 Active Ribs 2V wo Chest Rt [CR] Routine Exams 09/25/20 11:30 Ordered EKG 12 Lead [EK] Urgent Ther 09/25/20 12:08 Ordered Labs: Laboratory Tests 09/25/20 09/25/20 09/25/20 Range/Units 12:05 12:05 12:05 WBC 9.98 (5.00-10.00) 10^3/uL RBC 5.22 (3.80-5.50) 10^6/uL Hgb 15.5 (12.0-16.0) g/dL Hct 44.6 (37.0-47.0) % MCV 85.4 (82.0-92.0) fL MCH 29.7 (27.0-31.0) pg MCHC 34.8 (32.0-36.0) g/dL RDW 12.8 (11.5-14.5) % Plt Count 265 (150-400) 10^3/uL MPV 10.2 (7.4-10.4) fL Immature Gran % (Auto) 0.9 (0.0-5.0) % Neut % (Auto) 77.8 H (50.0-70.0) % Lymph % (Auto) 15.7 L (20.0-40.0) % [place] % (Auto) 4.5 (2.0-8.0) % Eos % (Auto) 0.8 L (1.0-3.0) % Baso % (Auto) 0.3 (0.0-1.0) % Neut # (Auto) 7.76 H (2.50-7.00) 10^3/uL Lymph # (Auto) 1.57 (1.00-4.00) 10^3/uL [place] # (Auto) 0.45 (0.10-0.80) 10^3/uL Eos # (Auto) 0.08 L (0.10-0.30) 10^3/uL Baso # (Auto) 0.03 (0.00-0.10) 10^3/uL Immature Gran # (Auto) 0.09 (0.00-0.50) 10^3/uL PT 17.0 H D (9.2-11.2) SEC INR 1.7 H (0.9-1.1) Sodium 141 (136-145) mmol/L Potassium 3.8 (3.5-5.1) mmol/L Chloride 99 (98-107) mmol/L Carbon Dioxide 28.4 (21.0-32.0) mmol/L Anion Gap 17.4 H (5-15) mmol/L BUN 19 H (7-18) mg/dL Creatinine 0.69 (0.51-1.17) mg/dL Est Cr Clr Drug Dosing 61.16 mL/min Estimated GFR (MDRD) > 60 mL/min Glucose 271 H (70-140) mg/dL Calcium 9.1 (8.7-10.3) mg/dL Total Bilirubin 0.6 (0.2-1.0) mg/dL AST 15 (15-37) U/L ALT 26 (14-63) U/L Alkaline Phosphatase 118 H (46-116) U/L Total Protein 7.0 (6.4-8.2) g/dL Albumin 3.78 (3.40-5.00) g/dL - Re-Assessments/Exams Free Text/Narrative Re-Assessment/Exam: 09/25/20 14:11 Nicole is been doing well with tolerable discomfort able to move about on the cart, up to the commode, and return to seated position on the cart. She denies any significant pain at this time and is willing to contact her daughter's for transport home or to one of their residence. Nursing staff is contacting Liyah to see if she will bring Nicole's car to pick her up. Departure - Departure Time of Disposition: 14:23 Disposition: Home, Self-Care 01 Condition: Fair Clinical Impression: Closed rib fracture, Head contusion, Fall, Abnormal INR - Discharge Information *PRESCRIPTION DRUG MONITORING PROGRAM REVIEWED*: Not Applicable *COPY OF PRESCRIPTION DRUG MONITORING REPORT IN PATIENT ALEXUS: Not Applicable Instructions: Contusion, [id number], Head Injury, Adult, [id number], Rib Fracture, [id number] Referrals: Rhonda Centeno PA-C [Primary Care Provider] - Forms: ED Department Discharge Additional Instructions: You have 1 nondisplaced rib fracture as we discussed. You need to limit your activity and use your incentive spirometry to reduce the risk of pneumonia. Your INR is slightly low today which is good considering the bump on your head and the fractured rib. You have swelling to your skull with no evidence of fracture or bleeding on the brain. You need to contact your clinic this week preferably sometime Saturday to discuss this with him as they will need to recheck your INR level. In the event you start developing headache or difficulty focusing you may need to return to the emergency department for reevaluation. The risk of a bleed in your brain is always increased when you are on blood thinners, which you are taking because of the clot in your lung. Continue all your medications as directed and follow-up with your clinic as needed or if significant concerns develop overnight consideration for reevaluation in the emergency department could be given. Sepsis Event Note (ED) - Focused Exam Vital Signs: Vital Signs Temp Pulse Resp BP Pulse Ox 09/25/20 11:32 97.0 F 72 16 174/103 H 93 L - Problem List & Annotations (1) Closed rib fracture SNOMED Code(s): 25033676 Code(s): S22.39XA - FRACTURE OF ONE RIB, UNSP SIDE, INIT FOR CLOS FX Status: Acute Current Visit: Yes (2) Head contusion SNOMED Code(s): 332848003 Code(s): S00.93XA - CONTUSION OF UNSPECIFIED PART OF HEAD, INITIAL ENCOUNTER Status: Acute Current Visit: Yes (3) Fall SNOMED Code(s): 4759835, 129481813 Code(s): W19.XXXA - UNSPECIFIED FALL, INITIAL ENCOUNTER Status: Acute Current Visit: Yes (4) Abnormal INR SNOMED Code(s): 249206801 Code(s): R79.1 - ABNORMAL COAGULATION PROFILE Status: Acute Current Visit: Yes - My Orders Last 24 Hours: My Active Orders 09/25/20 11:30 Ribs 2V wo Chest Rt [CR] Routine 09/25/20 12:08 EKG Documentation Completion [RC] ASDIRECTED EKG 12 Lead [EK] Urgent - Assessment/Plan Last 24 Hours: My Active Orders 09/25/20 11:30 Ribs 2V wo Chest Rt [CR] Routine 09/25/20 12:08 EKG Documentation Completion [RC] ASDIRECTED EKG 12 Lead [EK] Urgent Plan: You have 1 nondisplaced rib fracture as we discussed. You need to limit your activity and use your incentive spirometry to reduce the risk of pneumonia. Your INR is slightly low today which is good considering the bump on your head and the fractured rib. You have swelling to your skull with no evidence of fracture or bleeding on the brain. You need to contact your clinic this week preferably sometime Saturday to discuss this with him as they will need to recheck your INR level. In the event you start developing headache or difficulty focusing you may need to return to the emergency department for reevaluation. The risk of a bleed in your brain is always increased when you are on blood thinners, which you are taking because of the clot in your lung. Continue all your medications as directed and follow-up with your clinic as needed or if significant concerns develop overnight consideration for reevaluation in the emergency department could be given.
[2020-09-25 12:35] LABS: ANION GAP 17.4 mmol/L (5-15); CHLORIDE,CL 99 mmol/L (98-107); SODIUM,NA 141 mmol/L (136-145)
--- NOTE | 2020-09-25 12:37 | CT ---
[id number] CT/CT Head WO IV EXAM: CT Head WO IV CLINICAL DATA: FALL WITH HEAD INJURY. ON COUMADIN. COMPARISON STUDY: 2018. FINDINGS: Small left frontal and posterior parietal scalp contusions. No underlying calvarial fracture. No acute intracranial hemorrhage or extra-axial fluid collection. No hydrocephalus. Moderate changes of chronic small vessel disease in the brain. Extensive calcified atherosclerotic plaque in the intracranial segments of both internal carotid and vertebral arteries Calvarium intact. Paranasal sinuses and mastoid air cells are clear. IMPRESSION: Right posterior parietal and left frontal scalp contusions. No underlying calvarial fracture. No acute intracranial hemorrhage. Other findings are described above. Jaime Wang MD 09/25/20 1143 Thank you for allowing us to participate in the care of your patient.
--- NOTE | 2020-09-25 12:40 | CR ---
[id number] RAD/RAD Ribs Right W PA Chest; [id number] RAD/RAD Ribs Left W PA Chest Exam: RAD Ribs Right W PA Chest, RAD Ribs Left W PA Chest Indication:PAIN, FALL. Comparison: April 25, 2020. Discussion/Impression: Acute nondisplaced anterolateral right 8th rib fracture. No visible left rib fractures. No pneumothorax or effusion in either lung. No evidence of pneumonia. Cardiomegaly and central vascular congestion. Jaime Wang MD 09/25/20 [id number] Thank you for allowing us to participate in the care of your patient.
== END 2020-09-25 15:05 | disposition home or self-care (01) ==
LOC: KA.ED 11:19
DX: S22.31XA Fracture of one rib, right side, initial encounter for closed fracture (principal); S00.93XA Contusion of unspecified part of head, initial encounter; R79.1 Abnormal coagulation profile; I10 Essential (primary) hypertension; E11.9 Type 2 diabetes mellitus without complications; E78.00 Pure hypercholesterolemia, unspecified; Z79.01 Long term (current) use of anticoagulants; Z79.84 Long term (current) use of oral hypoglycemic drugs; Z79.899 Other long term (current) drug therapy; W10.9XXA Fall (on) (from) unspecified stairs and steps, initial encounter; Y92.009 Unspecified place in unspecified non-institutional (private) residence as the place of occurrence of the external cause
CPT/HCPCS: 36415; 70450; 71100-RT; 71101-LT; 80053; 85025; 85610; 93005; 99284; 99285-25

== ENCOUNTER 2022-01-25 14:39 | Observation (INO) | payer MEDICARE, BC ==
[2022-01-25] MEDS ORDERED: Acetaminophen 500 MG Tab PO ONE (15:14)
[2022-01-25 15:22] LABS: ANION GAP 16.8 mmol/L (5-15)
[2022-01-25] MEDS ORDERED: Polyethylene Glycol 3350 Powder 17 GM Packet PO PRN (19:53)
[2022-01-25] MEDS ORDERED: Acetaminophen 325 MG Tab PO PRN (19:59)
[2022-01-25] MEDS ORDERED: Warfarin 5 MG Tab PO ONE (20:13)
[2022-01-25] MEDS: metFORMIN 500 MG Tab.ER PO SCH (20:56)
[2022-01-25] MEDS ORDERED: Simvastatin 20 MG Tab PO SCH (21:00)
[2022-01-26 08:12] LABS: ANION GAP 14.5 mmol/L (5-15)
[2022-01-26] MEDS: metFORMIN 500 MG Tab.ER PO SCH (08:52)
[2022-01-26] MEDS ORDERED: Losartan 50 MG Tab PO SCH (09:00)
[2022-01-26] MEDS ORDERED: Metoprolol Succinate 50 MG Tab.ER PO SCH (09:00)
[2022-01-26] MEDS ORDERED: Hydrochlorothiazide 25 MG Tab PO SCH (09:00)
[2022-01-26 11:45] VITALS: BP 139/75; PULSE 68
[2022-01-26] MEDS ORDERED: Warfarin 5 MG Tab PO SCH (18:00)
== END 2022-01-26 13:50 | disposition home or self-care (01) ==
LOC: KA.ED 14:39 → KA.MS 18:09
PROVIDERS: ADMIT Student in an Organized Health Care Education/Training Program; ATTEND Student in an Organized Health Care Education/Training Program
DX: U07.1 COVID-19 (principal); R30.0 Dysuria; R35.0 Frequency of micturition; R50.9 Fever, unspecified; R06.02 Shortness of breath; R60.9 Edema, unspecified; J02.9 Acute pharyngitis, unspecified; M54.50 Low back pain, unspecified; R31.9 Hematuria, unspecified; R81 Glycosuria; E13.9 Other specified diabetes mellitus without complications; I44.0 Atrioventricular block, first degree; I10 Essential (primary) hypertension; E11.9 Type 2 diabetes mellitus without complications; E66.9 Obesity, unspecified; D72.829 Elevated white blood cell count, unspecified; E78.00 Pure hypercholesterolemia, unspecified; E87.1 Hypo-osmolality and hyponatremia; E87.8 Other disorders of electrolyte and fluid balance, not elsewhere classified; N28.1 Cyst of kidney, acquired; K76.89 Other specified diseases of liver; K86.89 Other specified diseases of pancreas; Z79.01 Long term (current) use of anticoagulants; Z86.711 Personal history of pulmonary embolism; Z68.34 Body mass index [BMI] 34.0-34.9, adult; Z79.899 Other long term (current) drug therapy; Z79.84 Long term (current) use of oral hypoglycemic drugs; Z79.2 Long term (current) use of antibiotics; Z86.16 Personal history of COVID-19
CPT/HCPCS: 36415; 71045; 74176; 80048; 80053; 81001; 83880; 84484; 85025; 85379; 85610; 93010; 99284; 99285; A9270-GY; G0378; U0002

== ENCOUNTER 2022-10-20 13:37 | Observation (INO) | payer MEDICARE, BC ==
[2022-10-20 14:16] LABS: ANION GAP 11.6 mmol/L (5-15); CHLORIDE,CL 101 mmol/L (98-107); SODIUM,NA 137 mmol/L (136-145)
[2022-10-20 14:18] LABS: ESTIMATED GFR 83 mL/min (>=60)
[2022-10-20] MEDS ORDERED: 50% Dextrose in Water 50 ML Syringe IVPUSH PRN (18:24)
[2022-10-20] MEDS ORDERED: Glucagon,Human Recombinant 1 MG Vial IM PRN (18:24)
[2022-10-20] MEDS ORDERED: Acetaminophen 650 MG Supp RECTAL PRN (18:27)
[2022-10-20] MEDS ORDERED: Sodium Chloride 0.9% 10 ML Syringe FLUSH PRN (18:27)
[2022-10-20] MEDS ORDERED: Acetaminophen 325 MG Tab PO PRN (18:27)
[2022-10-20] MEDS ORDERED: Warfarin 2.5 MG Tab PO SCH (20:00)
[2022-10-20] MEDS: Insulin Lispro 100 Unit/ML 3 ML KwikPen SUBCUT SCH (20:02)
[2022-10-20] MEDS ORDERED: SIMVASTATIN 40 MG PO SCH (21:00)
[2022-10-21 07:39] LABS: ANION GAP 10.5 mmol/L (5-15)
[2022-10-21] MEDS: Insulin Lispro 100 Unit/ML 3 ML KwikPen SUBCUT SCH ×2 (08:09→12:03)
[2022-10-21] MEDS ORDERED: HYDROCHLOROTHIAZIDE 25 MG PO SCH (09:00)
[2022-10-21] MEDS ORDERED: Furosemide 20 MG Tab ** OWN MED PO SCH (09:00)
[2022-10-21] MEDS ORDERED: LOSARTAN 100 MG PO SCH (09:00)
[2022-10-21] MEDS ORDERED: amLODIPine 2.5 MG Tab PO SCH (10:45)
[2022-10-21] MEDS ORDERED: Warfarin 2.5 MG Tab PO ONE (18:00)
[2022-10-21] MEDS ORDERED: Warfarin 5 MG Tab PO SCH (18:00)
== END 2022-10-21 13:35 | disposition home or self-care (01) ==
LOC: KA.ED 13:37 → KA.MS 15:54
PROVIDERS: ADMIT Nurse Practitioner Family; ATTEND Family Medicine
DX: I48.92 Unspecified atrial flutter (principal); R42 Dizziness and giddiness; R00.1 Bradycardia, unspecified; E78.00 Pure hypercholesterolemia, unspecified; I10 Essential (primary) hypertension; E11.9 Type 2 diabetes mellitus without complications; Z79.899 Other long term (current) drug therapy; Z79.84 Long term (current) use of oral hypoglycemic drugs; Z79.01 Long term (current) use of anticoagulants; Z90.710 Acquired absence of both cervix and uterus; Z90.89 Acquired absence of other organs
CPT/HCPCS: 36415; 71045; 80053; 82947; 83735; 83880; 84484; 85025; 85610; 93005; 93010; 99223; 99285; A9270-GY; G0378; J1815-GY